=== PATIENT | female | born 1995 | race Caucasian/White ===

== ENCOUNTER 2023-04-20 15:04 | Outpatient (CLI) | payer BC, SELFPAY | END 2023-04-20 15:05 | disposition home or self-care (01) | PROVIDERS: PCP Family Medicine; Visit Provider Physician Assistant | DX: Z01.419 Encounter for gynecological examination (general) (routine) without abnormal findings (principal); E03.9 Hypothyroidism, unspecified; N92.6 Irregular menstruation, unspecified; E66.01 Morbid (severe) obesity due to excess calories; Z13.1 Encounter for screening for diabetes mellitus; Z13.6 Encounter for screening for cardiovascular disorders | CPT/HCPCS: 80061; 84443 ==

== ENCOUNTER 2023-05-03 10:09 | Outpatient (CLI) | payer BC, SELFPAY ==
--- NOTE | 2023-05-03 10:15 | CRLHL7_ITS ---
For Patients: As a result of the Century Cures Act, medical imaging exams and procedure reports are released immediately into your electronic medical record. You may view this report before your referring provider. If you have questions, please contact your health care provider. INDICATION: Irregular menstruation COMPARISON: none TECHNIQUE: 2D lund scale and color Doppler images were acquired of the pelvis using a transabdominal and transvaginal approach. FINDINGS: Sonographic images demonstrate a normal size and smooth outer contour of the uterus. Uterus measures 8.3 cm in length by 3.4 cm in AP diameter by 4.2 cm in transverse dimension. The myometrium has a normal uniform echotexture. The endometrial lining appears thickened and measures 14 mm in composite thickness. The right ovary measures 2.6 x 1.9 x 1.9 cm in size and the left ovary measures 4.5 x 3.0 x 3.1 cm. The ovaries demonstrate normal arterial and venous blood flow on color Doppler analysis. There are no suspicious fluid collections within the cul-de-sac. IMPRESSION: Endometrial thickness 1.4 cm. A trace amount of fluid in the lower uterine segment may be present. No uterine fibroid. Dictated by Marlon Lala MD @ 05/03/2023 11:12:41 AM (Electronically Signed)
== END 2023-05-03 10:10 | disposition home or self-care (01) ==
LOC: US 10:09
PROVIDERS: PCP Family Medicine; Visit Provider Physician Assistant
DX: N92.6 Irregular menstruation, unspecified (principal); R93.89 Abnormal findings on diagnostic imaging of other specified body structures
CPT/HCPCS: 76830; 76856

== ENCOUNTER 2023-05-11 09:48 | Outpatient (CLI) | payer BC, SELFPAY | END 2023-05-11 09:49 | disposition home or self-care (01) | PROVIDERS: PCP Family Medicine; Referring Provider Family Medicine; Visit Provider Physician Assistant | DX: N93.8 Other specified abnormal uterine and vaginal bleeding (principal) | CPT/HCPCS: 82670; 83001 ==

== ENCOUNTER 2023-07-02 09:03 | Outpatient (CLI) | payer BC, SELFPAY ==
--- OUTSIDE RECORDS SUMMARY | 2023-07-12 22:01 | XMS_ITS | Continuity of Care Document ---
Author Name Unknown Organization [facility] Address [address] [place] [address] Phone Care Team Providers Care Community Health Agent Name Role Phone Douglas Mckeon MD Unavailab le Allergies, Adverse Reactions, Alerts Substance Reaction Status Criticality etanercept rash Active No Information Medications Medication Instructions Dosage Effective Dates (start - stop) Status Comments TIROSINT (unknown strength) Not Available - Active Procedures Procedure Date Office/Outpatient Visit,Est, Mod 2016 X-Ray Exam Lwr Spine, Min 4 Views Office/Outpatient Visit,Est, Mod 2016 Office/Outpatient Visit,New, Mod 2016 Advance Directives Directive Yes / No Effective Date File Name No Information Encounters Encounter Description Practice Location Reason(s) For Visit Diagnoses Date Provider Providers Copied on Encounter [facility], [address], [place], [id number], [place] tel:[phone] [facility] No Information Linda ontiveros [facility] [place], [address], [address], [place], [id number], [place]. tel:[phone] Office/Outpat ient Visit,Est, Mod [facility], [address], [place], [id number], [place] tel:[phone] [facility] - [facility] [place] Low back pain Linda ontiveros [facility], [address], [address], [place], [place], [id number], . tel:[phone] Referring Provider: Reza Mark [facility] [address], [address], [address]. [phone] Office/Outpat ient Visit,Est, Mod [facility], [address], [place], [place], [id number], [place] tel:[phone] [facility] Low back pain Linda rosaFlaquita [facility], [address] [place] [address], [address], [place], [place], [id number], . tel:[phone] Referring Provider: Reza Mark [facility] [address], [address], [address]. tel:[phone] Office/Outpat ient Visit,New, Mod [facility], [address], [place], [place], [id number], [place] tel:[phone] [facility] Low back pain Linda Miner rama [facility], [address] [place] [address], [address], [place], [place], [id number], . tel:[phone] Referring Provider: Reza Mark [facility] [address] [employer] [address], [address], [address]. tel:[phone] Family History Family Member Type Diagnosis Age At Onset No Information Payers Payer name Insurance type Covered green party ID Authoriza tion(s) [employer] [id number] Social History Type Description Quantity Date Captured Comments Sex Female Smoking Status No Information Chief Complaint And Reason For Visit No Information Reason For Referral Reason For Referral No Information History Of Present Illness Encounter Date Complaint History Of Prese nt Illness No Information Functional Status Date Functional Assessmen t No Information Instructions Date Instruction Additional Infor mation Weight Management Education Rela tana to Overweight Weight management: I nstructed to return to General Practitioner timeframe: 1 Month. Related to Overweight Weight Management Education Rela tana to Overweight Weight management: I nstructed to return to General Practitioner timeframe: 1 Month. Related to Overweight Weight Management Education Rela tana to Overweight Weight management: I nstructed to return to General Practitioner timeframe: 1 Month. Related to Overweight Assessments Type Assessment Date No Information Patient Care Teams Name Effective Dates (start - stop) Status Members No Information
== END 2023-07-02 09:04 | disposition home or self-care (01) ==
PROVIDERS: PCP Family Medicine; Referring Provider Obstetrics & Gynecology; Visit Provider Family Medicine
DX: Z01.818 Encounter for other preprocedural examination (principal); E03.9 Hypothyroidism, unspecified; N93.8 Other specified abnormal uterine and vaginal bleeding
CPT/HCPCS: 84144

== ENCOUNTER 2023-07-17 06:44 | Day surgery (SDC) | payer BC, SELFPAY ==
[2023-07-17] VITALS (7 sets, daily range): BP systolic 107–122; BP diastolic 70–86; PULSE 73–85; RESP 16; TEMP 36.6–36.7; O2SAT 96–97; BMI 51.1
--- OUTSIDE RECORDS SUMMARY | 2023-07-17 06:47 | XMS_ITS | Continuity of Care Document ---
Author Name Unknown Organization [facility] Address [address] [place] [address] Phone Care Team Providers Care Trapper Animal Name Role Phone Douglas Mckeon MD Unavailab [...] Copied on Encounter [facility], [address], [place], [id number], [place] tel:[phone] [facility] No Information Linda ontiveros [facility] [place], [address], [address], [place], [id number], [place]. tel:[phone] Office/Outpat ient Visit,Est, Mod [facility], [address], [place], [id number], [place] tel:[phone] [facility] - [facility] [place] Low back pain Linda ontiveros [facility], [address], [address], [place], [place], [id number], . tel:[phone] Referring Provider: Reza Mark [facility] [address], [address], [address]. [phone] Office/Outpat ient Visit,Est, Mod [facility], [address], [place], [place], [id number], [place] tel:[phone] [facility] Low back pain Linda rosaFlaquita [facility], [address] [place] [address], [address], [place], [place], [id number], . tel:[phone] Referring Provider: Reza Mark [facility] [address], [address], [address]. tel:[phone] Office/Outpat ient Visit,New, Mod [facility], [address], [place], [place], [id number], [place] tel:[phone] [facility] Low back pain Linda Miner rama [facility], [address] [place] [address], [address], [place], [place], [id number], . tel:[phone] Referring Provider: Reza Mark [facility] [address] [employer] [address], [address], [address]. tel:[phone] Family History Family Member Type Diagnosis Age At Onset No Information Payers Payer name Insurance type Covered constitution party ID Authoriza tion(s) [employer] [id number] Social History Type Description Quantity Date Captured [...]
[2023-07-17] MEDS: LACTATED RINGERS 1000 ML 1,000 ML 100 ML IV (07:05)
[2023-07-17 07:25] LABS: Ur HCG Qualitative* Negative (Negative)
[2023-07-17] MEDS: SODIUM CHLORIDE 0.9 % (FLUSH) 10 ML SYRINGE IVF (07:47)
[2023-07-17] MEDS: BUPIVACAINE 0.5% 30 ML INJECTION (09:28)
--- NOTE | 2023-07-17 09:54 | P.GYNPRC_ITS ---
Procedure Note Time Seen by Provider: 09:00 Date of procedure: 07/17/23 Pre-op diagnosis: Abnormal uterine bleeding, thick endometrial lining Post-op diagnosis: same Procedure: Hysteroscopy, dilation and curettage Anesthesia: MAC Complications: None Surgeon: Odette Manning MD [employer]: Sarah Rader Estimated blood loss (mL): 5 IV fluids (mL): 700 Urine Output (mL): 150 Pathology: specimen obtained, sent to pathology Condition: stable Disposition: same day Findings: Speculum exam: Cervix with evidence of menses like bleeding, no gross lesions or abnormal discharge. Intrauterine: bilateral cornual opening seen, thick endometrium, no abnormal vascularity or masses. Procedure Description: Patient was taken to the OR were MAC anesthesia was administered without difficulty. She was placed in the dorsal lithotomy position with Cade type stirrups. Patient was then prepared and draped in the normal sterile fashion. A bivalved speculum was inserted in the posterior aspect of the vagina. 0.5% Plain Marcaine was injected at 2 and 11 o'clock a total of about 5mL utilized. A single-tooth tenaculum was used to grasp the anterior lip of the cervix. The cervical os was sequentially dilated to accommodate the 5 mm TrueClear hysteroscope using Hegar dilators. A 5 mm 30 degree TrueClear hysteroscope was introduced under direct visualization, and the uterus was distended with normal saline. Findings as above. Soft tissue incisor blade from TrueClear hysteroscope system was introduced under direct visualization and endometrial curettings performed. Tenaculum was removed from the cervix and good hemostasis was noted at puncture sites. Patient tolerated the procedure well. Instrument and sponge counts were correct x2. The patient was awakened from MAC anesthesia and taken to the recovery room in a stable condition. The patient will go home after recovering from anesthesia and meeting all the criteria for discharge. She was given instruction regarding follow-up visit in 2 weeks at [facility] and instructions for pain medication. Fluid deficit: 110mL
--- NOTE | 2023-07-17 09:59 | W.ANESCHARGE ---
Anesthesia Charges Start Date/Time Anesthesia Start Date: 07/17/23 Anesthesia Start Time: 09:17 Stop Date/Time Anesthesia Stop Date: 07/17/23 Anesthesia Stop Time: 09:57
--- NOTE | 2023-07-17 10:16 | W.ANESCHARGE ---
Anesthesia Charges Start Date/Time Anesthesia Start Date: 07/17/23 Anesthesia Start Time: 09:17 Stop Date/Time Anesthesia Stop Date: 07/17/23 Anesthesia Stop Time: 09:57
== END 2023-07-17 11:11 | disposition home or self-care (01) ==
PROVIDERS: PCP Family Medicine; Visit Provider Obstetrics & Gynecology
PROC: 0UDB8ZZ Extraction of Endometrium, Via Natural or Artificial Opening Endoscopic (ICD-10-PCS; CPT 58558; principal; 2023-07-17 08:15)
DX: N93.8 Other specified abnormal uterine and vaginal bleeding (principal); R93.89 Abnormal findings on diagnostic imaging of other specified body structures
CPT/HCPCS: 58558; 00952; 81025; 88305; J0665; J1885; J2250; J2405; J2704; J3010; J3490; J7120

== ENCOUNTER 2023-09-04 08:55 | Outpatient (CLI) | payer BC, SELFPAY ==
--- OUTSIDE RECORDS SUMMARY | 2023-09-04 08:57 | XMS_ITS | Continuity of Care Document ---
Author Name Unknown Organization [facility] Address [address] [place] [address] Phone Care Team Providers Care Ice Rink Attendant Name Role Phone Douglas Mckeon MD Unavailab [...] [facility], [address], [place], [id number], [place] tel:[phone] [facility] No Information Linda ontiveros [facility] [place], [address], [address], [place], [id number], [place]. tel:[phone] Office/Outpat ient Visit,Est, Mod [facility], [address], [place], [id number], [place] tel:[phone] [facility] [place] Low back pain Linda ontiveros [facility], [address], [address], [place], [place], [id number], . tel:[phone] Referring Provider: Reza Mark [facility] [employer] [address], [address], [address]. [phone] Office/Outpat ient Visit,Est, Mod [facility], [address], [place], [place], [id number], [place] tel:[phone] [facility] Low back pain Linda rosaFlaquita [facility], [address] [place] [address], [address], [place], [place], [id number], . tel:[phone] Referring Provider: Reza Mark [facility] [employer] [address], [address], [address]. tel:[phone] Office/Outpat ient Visit,New, Mod [facility], [address], [place], [place], [id number], [place] tel:[phone] [facility] Low back pain Linda Miner rama [facility], [address] [place] [address], [address], [place], [place], [id number], . tel:[phone] Referring Provider: Reza Mark [facility] [address] [employer] [address], [address], [address]. tel:[phone] Family History Family Member Type Diagnosis Age At Onset No Information Payers Payer name Insurance type Covered libertarian ID Authoriza tion(s) [employer] [id number] Social History Type Description Quantity Date Captured [...]
== END 2023-09-04 08:56 | disposition home or self-care (01) ==
LOC: NFLDREF 08:56
PROVIDERS: PCP Family Medicine; Visit Provider Family Medicine
DX: D64.9 Anemia, unspecified (principal); N93.8 Other specified abnormal uterine and vaginal bleeding
CPT/HCPCS: 82728

== ENCOUNTER 2024-05-02 09:03 | Outpatient (CLI) | payer BC, SELFPAY ==
--- OUTSIDE RECORDS SUMMARY | 2024-05-02 09:07 | XMS_ITS ---
Author Organization [facility] Address [address] [place] [address] Care Team Providers Care Weigh Box Tender Name Role Phone Unavailable Unavailable Unavailable Surgery Details Not on file Complications Check Surgery Details section. Procedure Estimated Blood Loss Check Surgery Details section. Procedure Findings Check Surgery Details section. Procedure Specimens Taken Check Surgery Details section.
--- OUTSIDE RECORDS SUMMARY | 2024-05-02 09:07 | XMS_ITS | Clinical Summary ---
Author Organization [facility] Address [address] [place] [address] Care Team Providers Care Rn Radiation Oncology Name Role Phone Elsewhere, Pcp Primary Care Provider Unavailabl e Source Comments Patient records contain information from all sites at [facility]. For routine questions regarding patient records, call [phone] during business hours, M-F 8:00 AM - 5:00 PM Central Time. Record requests for emergency care only can be directed to [phone] at any time.[facility] Allergies Active Allergy Reactions Criticality Noted Date Comments Etanercept Rash 11/06/2016 House Dust Other (see comments) 07/26/2007 Medications Medication Sig Dispensed Refills Start Date End Date Status vits96/iron fum/folic ( vitamin-ferrous fumarate-FA) 27 mg iron- 800 mcg per tablet Take 2 tablets by mouth daily. Active metFORMIN XR (GLUCOPHAGE-XR) 500 mg 24 hr tablet Take 1,000 mg by mouth daily with breakfast. 09/04/2023 Active levothyroxine (SYNTHROID, LEVOTHROID) 100 mcg tablet TAKE 1 TABLET(100 MCG) BY MOUTH DAILY 90 tablet 2 09/19/2023 Active celecoxib (CeleBREX) 200 mg capsuleIndications:P ain Foot Left,Sprain Foot Initial Left TAKE 1 CAPSULE(200 MG) BY MOUTH TWICE DAILY 180 capsule 3 11/02/2023 Active ibuprofen (MOTRIN) 600 mg tabletIndications:Sp rain Ankle Initial Right Take 1 tablet (600 mg total) by mouth every 6 (six) hours as needed for pain (pain). 120 tablet 04/01/2024 Active levothyroxine (SYNTHROID, LEVOTHROID) 137 mcg tablet Take 137 mcg by mouth every morning before breakfast. 03/19/2024 Active Active Problems Problem Noted Date Diagnosed Date ZZ Body Mass Index 50.0 To 59.9 Adult 06/27/2022 Obesity Unspecified 04/14/2022 Infertility Female 04/14/2022 Menstrual Irregularity 04/14/2022 Hypothyroidism 04/14/2022 Allergy Unspecified Initial 04/14/2022 Asthma 04/14/2022 Atypical Squamous Cells Undetermined Significanc e Cervix 12/29/2019 Overview: 12/29/2019 ASCUS/HPV+. 02/21/2021 NIL Plan: Pap due 02/2022 Spondylitis Ankylosing 12/06/2016 Spondylosis Without Myelopat hy Or Radiculopathy Site Unspecified 09/19/2016 Pain Low Back Chronic 08/23/2016 Overview: Lumbar Spine MRI January 2013. Aug 2016: Rheumatology consult Dr. Mark, MRI of sacroiliac joints ordered. Hypothyroidism 06/21/2007 Resolved Problems Problem Noted Date Diagnosed Date Resolved Date Bleeding Vaginal Trimester First 05/04/2022 06/27/2022 Encounters Date Type Department Care Team Description 04/15/2024 10:30 AM CDT Office Visit Department of Occupational Medicine [address] [phone] Monique Linton P.A.-C., P.A. Sprain Ankle Initial Right 04/03/2024 2:15 PM CDT Comprehensive Visit Department of Occupational Medicine in [address] [phone] Monique Linton P.A.-C., P.A. Sprain Ankle Initial Right 04/02/2024 Clinical Communication Department of Family Medicine, [facility], [address] [phone] Saida Osullivan, MARY, C.N.P., D.N.P. 04/01/2024 4:30 PM CDT Office Visit Department of Family Medicine, [facility], in [place], [place] [address] [place] [address] Saida Osullivan, MARY, C.N.P., D.N.P. Sprain Ankle Initial Right (Primary Dx) 04/01/2024 4:07 PM CDT - 04/01/2024 11:59 PM CDT Hospital Encounter Department of Radiology in [place], [place] [address] [place] [address] Saida Osullivan APRN, C.N.P., D.N.P. Pain Ankle Right Discharge Disposition: Home or Self Care from Last 3 Months Immunizations Name Administration Dates Next Due 4vHPV (discontinued) 11/26/2013,09/18/2012 9vHPV 03/21/2016 DTaP (Infanrix, Tripedia) 06/07/2001,,1997,1997,1997 HepB, Unspecified 1997,1997,06/25/19 97 Hib (HbOC) (discontinued) 12/11/1998,,1997,1996 IPV 06/07/2001, 9,1997,1996 Influenza, Seasonal, Injectable 08/15/1999 Influenza, Unspecified 02/09/2022(Deferred: Monik ent decision) MCV4 (Menveo) 11/26/2013,09/18/2012 MMR 06/07/2001,09/11/1998 PPSV23 08/15/1999 Rho (D) Immune Globulin (IM only) 05/05/2022 SARS-COV-2 (COVID-19) - PFIZ ER (Discontinued)(12 years or older) 02/09/2022(Deferred: Patient decision) Tdap 12/19/2019,06/09/2009 ROXANA 06/09/2009,09/11/1998 Family History Medical History Relation Name Comments Cancer Maternal Grandmother Diabetes Maternal Grandmother Throat cancer Maternal Grandmother Breast cancer Paternal Grandmother Relation Name Status Comments Maternal Grandmother Paternal Grandmother Social History Tobacco Use Types Packs/Day Years Used Date Smoking Tobacco: Never Smokeless Tobacco: Never Tobacco Cessation:Counseling Given: Not Answered Alcohol Use Standard Drinks/Week Comments Not Currently 2 (1 standard drink = 0.6 oz pur e alcohol) 1 or twice per month. Humiliation, Afraid, Rape, and Kick questionnair e Answer Date Recorded Within the last year, have y ou been afraid of your partner or ex-partner? No 09/08/2022 Within the last year, have y ou been humiliated or emotionally abused in other ways by your partner or ex-partner? No Within the last year, have y ou been kicked, hit, slapped, or otherwise physically hurt by your partner or ex-partner? No 09/08/2022 Within the last year, have y ou been raped or forced to have any kind of sexual activity by your partner or ex-partner? No 09/08/2022 Social Connection and Isolat ion Panel [NHANES] Answer Date Recorded In a typical week, how many times do you talk on the phone with family, friends, or neighbors? More than three times a week 09/08/2022 How often do you get togethe r with friends or relatives? Once a week 09/08/2022 How often do you attend chur or voodoo services? Never 09/08/2022 Do you belong to any clubs o r organizations such as cheondoism groups, unions, fraternal or athletic groups, or school groups? No 09/08/2022 How often do you attend meet ings of the clubs or organizations you belong to? Never 09/08/2022 Are you , , di vorced, , never , or living with a partner? Living with partner 09/08/2022 AUDIT-C Answer Date Recorded Q1: How often do you have a drink containing alc ohol? Monthly or less 09/08/2022 Q2: How many drinks containi ng alcohol do you have on a typical day when you are drinking? 1 or 2 09/08/2022 Q3: How often do you have si x or more drinks on one occasion? Never 09/08/2022 Overall Financial Resource Strain (CARDIA) Answe r Date Recorded How hard is it for you to pa y for the very basics like food, housing, medical care, and heating? Not hard at all 09/08/2022 PHQ-2 Answer Date Recorded PHQ-2 Score 0 06/29/2023 [facility] - Occupational Stress Questionnaire Answer Date Recorded Do you feel stress - tense, restless, nervous, or anxious, or unable to sleep at night because your mind is troubled all the time - these days? Not at all 09/08/2022 Exercise Vital Sign Answer Date Recorde d On average, how many days pe r week do you engage in moderate to strenuous exercise (like a brisk walk)? 7 days 09/08/2022 On average, how many minutes do you engage in exercise at this level? 30 min 09/08/2022 Hunger Vital Sign Answer Date Recorded Within the past 12 months, y ou worried that your food would run out before you got the money to buy more. Never true 09/08/20 Within the past 12 months, t he food you bought just didn't last and you didn't have money to get more. Never true 09/08/2022 PRAPARE - Transportation Answer Date Re corded In the past 12 months, has l ack of transportation kept you from medical appointments or from getting medications? No 08/22 In the past 12 months, has l ack of transportation kept you from meetings, work, or from getting things needed for daily living? No 09/08/2022 Housing Stability Vital Sign Answer Daniel e Recorded In the last 12 months, was t here a time when you were not able to pay the mortgage or rent on time? No 09/08/2022 In the last 12 months, how many places have you lived? 1 09/08/2022 In the last 12 months, was t here a time when you did not have a steady place to sleep or slept in a half-way (including now)? No 09/08/2022 Nutrition Answer Date Recorded On average, how many serving s of fruits and vegetables do you eat per day (serving size is equal to 1 cup or approximately the size of a tennis ball)? 2-3 09/08/2022 Dental Answer Date Recorded Dental: Regular Dentist Yes 02/06/20 Employment Answer Date Recorded Employment status Employed and actively working without restrictions 09/08/2022 Education Answer Date Recorded What is the highest level of school you have completed or the highest degree you have received? Bachelor's degree (e.g., BA, AB, BS) 02/05/2022 Sex and Gender Information Value Date Recorded Sex Assigned at Female 04/11/2022 8:07 PM CDT Gender Identity Female 04/11/2022 8:07 PM CDT Sexual Orientation Straight 04/11/2022 8: 07 PM CDT Last Filed Vital Signs Vital Sign Reading Time Taken Comments Blood Pressure 123/80 04/15/2024 10:47 AM CDT Pulse 80 04/15/2024 10:47 AM CDT Temperature 36.2 ??C (97.1 ??F) 04/01/2024 3:55 PM CD T Respiratory Rate 18 02/09/2022 9:10 AM CDT Oxygen Saturation - - Inhaled Oxygen Concentration - - Weight 130 kg (287 lb 0.6 oz) 09/08/2022 8:39 AM MEASUREMENT PSYCHOLOGIST Height 161.9 cm (5' 3.74) 09/08/2022 10:[address] Body Mass Index 49.68 09/08/2022 8:39 AM MEASUREMENT PSYCHOLOGIST Plan of Treatment Upcoming Encounters Date Type Department Care Team (Late st Contact Info) Description 05/27/2024 8:15 AM CDT Office Visit Department of Occupational Medicine in [place], [place] [address] [address] Monique Linton P.A.-Jenny., P.A. [address] [place] [phone] Health Maintenance Due Date Last Done Comments HIV Screening 1997 Hepatitis C Screening 1997 Pneumococcal vaccine (0-64 y ears) (2 of 3 - PCV) 08/15/2000 08/15/1999 Asthma Action Plan 04/14/2022 COVID-19 Vaccine (3 - 2022-2 4 season) 2023 03/31/2021, 03/10/2021 Thyroid Stimulating Hormone (TSH) test for thyroid function 09/08/2023 09/08/2022, 04/14/2022, 02/16/2022, Additional history exists Depression Screening (Annual PHQ-2) 10/22/2023 Asthma Control Test Questionnaire 06/29/2024 023 Asthma Management/Exacerbati on Questionnaire (AMQ/AEQ) 06/29/2024 06/29/2023 Influenza Vaccine (#1) 2024 02/09/2022, 1998 Cervical Cancer Screening 02/09/2025 02/09/2022, DTaP,Tdap,and Td Vaccines (7 - Td or Tdap) 12/19/2029 12/19/2019, 06/09/2009, 06/07/2001, Additional history exists Hepatitis B Vaccines Completed 1997, 1997, 1997 HPV Vaccines Completed 03/21/2016, 02/2014, 11/26/2013, Additional history exists Chlamydia and Gonorrhea Screening Discontinued 022 Procedures Procedure Name Priority Date/Time Associated Diagnosis Comments DX ANKLE RIGHT 3+ VIEWS RAD - Semiurgent (Fast; most ED patients; some inpatients) 04/01/2024 4:22 PM CDT Pain Ankle Right THYROID-STIMULATI NG HORMONE-SENSITIVE (S-TSH) Routine 09/08/2022 10:07 AM MEASUREMENT PSYCHOLOGIST Body Mass Index 50.0 To 59.9 Adult (HCC) CHLAMYDIA/GONORRH OEAE AMPLIFIED RNA Routine 04/14/2022 4:17 PM CDT Screening For Venereal Disease HPV WITH GENOTYPING, PCR, THINPREP Routine 02/09/2022 9:52 AM CDT from Last 3 Months or Most Recently Relevant to Health Maintenance Results * DX Ankle Right 3+ Views (04/01/2024 4:22 PM CDT) Anatomical Region Laterality Modality Lower Extremity, Ankle, Musc uloskeletal RST LOS, Musculoskeletal ARZ LOS, Muskuloskeletal FLA LOS Right Digit al Radiography Impressions 04/01/2024 4:28 PM CDT No ankle fracture. Ankle mortise is symmetrical. Small Achilles and plantar calcaneal spurs. Narrative 04/01/2024 4:28 PM CDT EXAM: DX ANKLE RIGHT 3+ VIEWS Procedure Note Star Jacques M.D. - 04/01/2024 EXAM: DX ANKLE RIGHT 3+ VIEWS IMPRESSION: No ankle fracture. Ankle mortise is symmetrical. Small Achilles andplantar calcaneal spurs. Saida Osullivan APRN, C.N.P., D.N.P. IMG DI AGNOSTIC IMAGING PROCEDURES * (ABNORMAL) S-TSH (Thyroid-Stimulating Hormone - Sensitive) (09/08/2022 10:07 AM MEASUREMENT PSYCHOLOGIST) Pathologist [facility] TSH, Sensitive 4.4(H) 0.3 - 4.2 mIU/L 09/08/2022 11:18 AM MEASUREMENT PSYCHOLOGIST DTL Blood (Blood, Venous) 09/08/2022 10:07 AM MEASUREMENT PSYCHOLOGIST 09/08/2022 10:51 AM MEASUREMENT PSYCHOLOGIST Markus Villar M.D. LAB BLOOD ADD- ON [facility] [address] [place] [address], [facility] [address] [place] [address] * Chlamydia / Gonorrhoeae Amplified RNA (04/14/2022 4:17 PM CDT) Source Swab, Urine, First Voided 04/15/2022 12:04 AM CDT MKTO Chlamydia trachomatis amplified RNA Negative Negative 04/15/2022 12:04 AM CDT MKTO Source Swab, Urine, First Voided 04/15/2022 12:04 AM CDT MKTO Neisseria gonorrhoeae amplified RNA Negative Negative 04/15/2022 12:04 AM CDT MKTO Varies (Urine, First Voided) 04/14/2022 4:17 PM CDT 04/14/2022 7:21 PM CDT Carla Arzate M.D. LAB MICROBIOLOGY - G ENERAL ORDERABLES [facility] [address] [place] [address], [place] [address] * HPV with Genotyping, PCR, ThinPrep (02/09/2022 9:52 AM CDT) HPV with Genotyping, ThinPrep, PCR Negative Negative 02/10/2022 2:30 PM CDT [facility] Comment: Negative for high risk HPV by nucleic acid amplification. ??The following high risk HPV types were not detected: 16, 18, 31, 33, 35, 39, 45, 51, 52, 56, 58, 59, 66, and 68 Varies 02/09/2022 9:52 AM CDT 02/10/2022 7:11 AM CDT Gale Kenyon APRN, C.N.P. LAB MICROBI OLOGY - GENERAL ORDERABLES [facility] [address] [place] [address], [place] [address] from Last 3 Months or Most Recently Relevant to Health Maintenance Care Teams Rn Radiation Oncology Relationship Specialty Start Date End Date Elsewhere, Pcp PCP - General Internal Medicine 02/09/22
--- OUTSIDE RECORDS SUMMARY | 2024-05-02 09:07 | XMS_ITS | Referral Summary ---
Author Organization [facility] Address [address] [place] [address] Care Team Providers Care Philatelic Consultant Name Role Phone Elsewhere, Pcp Primary Care Provider Unavailabl e Source Comments Patient records contain information from all sites at [facility]. For routine questions regarding patient records, call [phone] during business hours, M-F 8:00 AM - 5:00 PM Central Time. Record requests for emergency care only can be directed to [phone] at any time.[facility] Encounters Date Type Department Care Team Description 04/15/2024 10:30 AM CDT Office Visit Department of Occupational Medicine in [place], [place] [address] [place] [phone] Monique Linton P.A.-C., P.A. Sprain Ankle Initial Right 04/03/2024 2:15 PM CDT Comprehensive Visit Department of Occupational Medicine in [place], [place] [address] [place] [phone] Monique Linton P.A.-C., P.A. Sprain Ankle Initial Right 04/02/2024 Clinical Communication Department of Family Medicine, [facility], in [place], [place] [address] [place] [phone] Saida Osullivan APRN, C.N.P., D.N.P. 04/01/2024 4:07 PM CDT - 04/01/2024 11:59 PM CDT Hospital Encounter Department of Radiology in [place], [place] [address] [place] [phone] Saida Osullivan APRN C.N.P., D.N.P. Pain Ankle Right Discharge Disposition: Home or Self Care 04/01/2024 4:30 PM CDT Office Visit Department of Family Medicine, [facility], in [place], [place] [address] [place] [address] Saida Osullivan APRN, C.N.P., D.N.P. Sprain Ankle Initial Right (Primary Dx) from Last 3 Months Allergies Active Allergy Reactions Criticality Noted Date [...] Date Bleeding Vaginal Trimester First 05/04/2022 06/27/2022 Immunizations Name Administration Dates Next Due 4vHPV [...] 02/09/2022(Deferred: Patient decision) Tdap 12/19/2019,06/09/2009 ROXANA 06/09/2009,09/11/1998 Social History Tobacco Use Types Packs/Day Years [...] How often do you attend chur or amish services? Never 09/08/2022 Do you belong to any clubs o r organizations such as latter-day groups, unions, fraternal or athletic groups, or [...] Answer Date Recorded PHQ-2 Score 0 06/29/2023 Citizen Of [place] [facility] - Occupational Stress Questionnaire Answer Date Recorded [...] place to sleep or slept in a group home (including now)? No 09/08/2022 Nutrition Answer Date [...] (287 lb 0.6 oz) 09/08/2022 8:39 AM NNPS Height 161.9 cm (5' 3.74) 09/08/2022 10:[address] Body Mass Index 49.68 09/08/2022 8:39 AM NNPS Plan of Treatment Upcoming Encounters Date Type Department Care Team (Late st Contact Info) Description 05/27/2024 8:15 AM CDT Office Visit Department of Occupational Medicine in [place], [place] [address] [phone] Monique Linton P.A.-C., P.A. [address] [phone] Procedures Procedure Name Priority Date/Time Associated Diagnosis Comments DX ANKLE RIGHT 3+ VIEWS RAD - Semiurgent (Fast; most ED patients; some inpatients) 04/01/2024 4:22 PM CDT Pain Ankle Right THYROID-STIMULATI NG HORMONE-SENSITIVE (S-TSH) Routine 09/08/2022 10:07 AM NNPS Body Mass Index 50.0 To 59.9 Adult [...] (Thyroid-Stimulating Hormone - Sensitive) (09/08/2022 10:07 AM NNPS) Pathologist [facility] TSH, Sensitive 4.4(H) 0.3 - 4.2 mIU/L 09/08/2022 11:18 AM NNPS DTL Blood (Blood, Venous) 09/08/2022 10:07 AM NNPS 09/08/2022 10:51 AM NNPS Markus Villar M.D. LAB BLOOD ADD- ON [facility] [address] [place] [address], [place] [facility] [address] [place] [address] * Chlamydia / Gonorrhoeae Amplified RNA (04/14/2022 [...] M.D. LAB MICROBIOLOGY - G ENERAL ORDERABLES Performing Organization Address City/[facility]/ZIP Co de Phone Number [facility] [address] [place] [address] * HPV with Genotyping, PCR, ThinPrep (02/09/2022 9:52 AM CDT) HPV with Genotyping, ThinPrep, PCR Negative Negative 02/10/2022 2:30 PM CDT MKTO Comment: Negative for high risk HPV by nucleic acid amplification. ??The following high risk HPV types were not detected: 16, 18, 31, 33, 35, 39, 45, 51, 52, 56, 58, 59, 66, and 68 Varies 02/09/2022 9:52 AM CDT 02/10/2022 7:11 AM CDT Odette Whyte APRNNEnoch LAB MICROBI OLOGY - GENERAL ORDERABLES [facility] [address] [place] [address] from Last 3 Months or Most Recently Relevant to Health Maintenance Care Teams Philatelic Consultant Relationship Specialty Start Date End Date Elsewhere, Pcp PCP - General Internal Medicine 02/09/22
--- OUTSIDE RECORDS SUMMARY | 2024-05-02 09:07 | XMS_ITS | Continuity of Care Document ---
Author Organization [facility] Address [address] [place] [address] Phone Care Team Providers Care Crew Member Name Role Phone Douglas Mckeon MD Unavailab [...] [facility], [address], [place], [id number], [place] tel:[phone] [facility] No Information Linda ontiveros [facility], [address] [place] [address], [address], [place], [id number], [place]. tel:[phone] Office/Outpat ient Visit,Est, Mod [facility], [address], [place], [id number], [place] tel:[phone] [facility] Specialty [place] Low back pain Linda ontiveros [facility], [address], [address], [place], [place], [id number], . tel:[phone] Referring Provider: Reza Mark [facility] [place] [facility] [address], [address], [address]. [phone] Office/Outpat ient Visit,Est, Mod [facility], [address], [place], [place], [id number], tel:[phone] [facility] Low back pain Linda rosaFlaquita [facility], [address] [place] [address], [address], [place], [place], [id number], . tel:[phone] Referring Provider: Reza Mark [facility] [place] [facility] [address], [address], [address]. tel:[phone] Office/Outpat ient Visit,New, Mod [facility], [address], [place], [place], [id number], [place] tel:[phone] [facility] Low back pain Linda rosaFlaquita [facility], [address] [place] [address], [address], [place], [place], [id number], . tel:[phone] Referring Provider: Reza Mark [facility] [place] [facility] [address], [address], [address]. tel:[phone] Family History Family Member Type Diagnosis Age At Onset No Information Payers Payer name Insurance type Covered alliance party ID Authoriza tion(s) [employer] [id number] Social History Type Description Quantity Date Captured [...]
--- OUTSIDE RECORDS SUMMARY | 2024-05-02 09:07 | XMS_ITS | Encounter Summary ---
Author Organization [facility] Address [address] [place] [address] Care Team Providers Care Predictive Maintenance Technician Name Role Phone Elsewhere, Pcp Primary Care Provider Unavailabl e Reason for Referral * Outpatient (Routine) - Authorized Specialty Diagnoses / Procedures Referred By Contac t Referred To Contact Preventive Medicine Diagnoses Sprain Ankle Initial Right Monique Linton P.A.-C., P.A. [address] [phone] [facility] Referral ID Status Reason Start Date Expiration Date V isits Requested Visits Authorized [id number] Authorized 04/15/2024 10/15/2025 1 1 * Physical Therapy (Routine) - Authorized Specialty Diagnoses / Procedures Referred By Contac t Referred To Contact Diagnoses Sprain Ankle Initial Right Monique Linton P.A.-C., P.A. [address] [place] [address] [facility] [address] [address] Phone: [phone] Referral ID Status Reason Start Date Expiration Date Visits Requested Visits Authorized [id number] Authorized Patient Preference 04/15/2024 10/15/2025 1 1 Reason for Visit * Reason Comments Work Related Injury [facility] 04/01/24 [facility] * Outpatient (Routine) - Closed Specialty Diagnoses / Procedures Referred By Elena hampton Referred To Contact Preventive Medicine Diagnoses Sprain Ankle Initial Right Monique Linton P.A.-C., P.A. [address] [phone] [facility] Region Referral ID Status Reason Start Date Expiration Date Visits Re quested Visits Authorized [id number] Closed 04/03/2024 10/03/2025 1 1 Encounter Details Date Type Department Care Team (Latest Contact Info) Description 04/15/2024 10:30 AM CDT Office Visit Department of Occupational Medicine in [place], [place] [address] [phone] Monique Linton P.A.-C., P.A. [address] [place] [phone] Sprain Ankle Initial Right Social History Tobacco Use Types Packs/Day Years [...] 09/08/2022 How often do you attend chur ch or religion services? Never 09/08/2022 Do you belong to any clubs o r organizations such as sabianist groups, unions, fraternal or athletic groups, or [...] Answer Date Recorded PHQ-2 Score 0 06/29/2023 [facility] Answer Date [...] money to buy more. Never true 09/08/20 22 Within the past 12 months, t he [...] Orientation Straight 04/11/2022 8: 07 PM CDT documented as of this encounter Last Filed Vital Signs Vital Sign Reading Time Taken Comments Blood Pressure 123/80 04/15/2024 10:47 AM CDT Pulse 80 04/15/2024 10:47 AM CDT Temperature - - Respiratory Rate - - Oxygen Saturation - - Inhaled Oxygen Concentration - - Weight - - Height - - Body Mass Index - - documented in this encounter Progress Notes * Monique Linton P.A.-Jenny., P.A. - 04/15/2024 10:30 AM CDT DATE OF VISIT: 04/15/24 EMPLOYER: [employer] DATE OF INJURY/ILLNESS/EXPOSURE: 04/01/24 POSITION: [employer] Krystina Melo is a 28 y.o. female who presents today for recheck of a right ankle injury that occurred on 04/01/24 at work. To review, Krystina was walking on the sidewalk and tripped, likely due to the uneven ground, causing her to twist her right ankle. She was seen in the same day clinic on the [facility], where right ankle x-rays were negative for any acute osseous injury. She was diagnosed with a sprain and given work restrictions and instructions for conservative cares. At her initial visit in our clinic 2 days later, she was instructed to continue with conservative cares and light duty restrictions. Krystina presents for follow-up today, reporting Pain Score: 5/10; Pain Loc: Ankle (right). She reports some improvement in her pain compared to the last visit, but she does still have pain with walking/weightbearing. She states that she struggles to stay on it for longer periods of time. Her pain remains mainly located over the lateral aspect of the ankle. She has continued wearing her brace most of the time, and it gives her good support. 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 Previous injury or condition: Denies any prior injuries, surgeries, or conditions of the right ankle. She is known to our department for a prior work- related left ankle sprain which occurred in June 2023. Social and Occupational History: She works for [employer], duration of employment: 3 years. She works full-time 5 days per week for 8 hours per shift. Past Medical History: Diagnosis Date Abnormal Pap Smear Cervix Bleeding Vaginal Trimester First (HCC) 05/04/2022 Gallbladder Disorder Hypothyroidism Current Outpatient Medications on File Prior to Visit Medication Sig Dispense Refill celecoxib (CeleBREX) 200 mg capsule TAKE 1 CAPSULE(200 MG) BY MOUTH TWICE DAILY 180 capsule 3 ibuprofen (MOTRIN) 600 mg tablet Take 1 tablet (600 mg total) by mouth every 6 (six) hours as needed for pain (pain). 120 tablet 0 levothyroxine (SYNTHROID, LEVOTHROID) 100 mcg tablet TAKE 1 TABLET(100 MCG) BY MOUTH DAILY 90 tablet 2 levothyroxine (SYNTHROID, LEVOTHROID) 137 mcg tablet Take 137 mcg by mouth every morning before breakfast. metFORMIN XR (GLUCOPHAGE-XR) 500 mg 24 hr tablet Take 1,000 mg by mouth daily with breakfast. vits96/iron fum/folic ( vitamin-ferrous fumarate-FA) 27 mg iron- 800 mcg per tablet Take 2 tablets by mouth daily. No current facility-administered medications on file prior to visit. ROS: Musculoskeletal: - Negative for back pain, joint swelling and muscle pain/stiffness. - Positive for right ankle pain The following systems were negative: Constitutional, Skin, Respiratory, Cardiovascular, Hematologic, Neurological BP 123/80 (BP Location: Right arm, Patient Position: Sitting, Cuff Size: Regular) Pulse 80 PHYSICAL EXAM: General: Alert, relaxed female, under no acute distress. Skin: Warm, moist. No lesions or ecchymosis. HEENT: Normocephalic, atraumatic. Musculoskeletal: Ankle Exam: right. Gait: mildly antalgic. Inspection: No gross abnormalities on inspection. Palpation: Mild to moderate tenderness to palpation over the lateral aspect of the ankle. Milder tenderness over the mid dorsum of the foot. Range of Motion: Plantar Flexion within normal limits. Dorsiflexion within normal limits. Inversionwithin normal limits. Eversion slightly limited secondary to pain. Toe flexion and abduction normal. Strength: Resisted Plantar Flexion 5/5. Resisted Dorsiflexion 5/5. Neurovascularly intact distally. Diagnostics: DX ANKLE RIGHT 3+ VIEWS Result date: 04/01/24 IMPRESSION: No ankle fracture. Ankle mortise is symmetrical. Small Achilles and plantar calcaneal spurs. ASSESSMENT / PLAN 1. Sprain Ankle Initial Right MMI: No PPD: Undetermined Work Related: Yes 28 y/o female presents for recheck of a right ankle twisting injury that occurred at work on 04/01/24. She reports overall improvement in her symptoms compared to the last visit, but she does have some persistent pain with weightbearing. Clinical picture remains consistent with a sprain. At this time, recommended referral to PT for further evaluation and treatment. Referral was placed to [facility] at the patient's preference. Recommended that she continue with bracing, RICE measures, and OTC analgesics PRN. No change in work restrictions for now until she has achieved further healing and recovery with rehab. Further details below. Will plan for return visit in our clinic in approximately 4-6 weeks. May return sooner if concerns arise. Discussed worsening symptoms that will bring the patient back sooner for further evaluation. Medications: OTC NSAIDs and/or Tylenol PRN. Next step if no significant improvement: consider advanced imaging. Work status: modified duty with restrictions as follows : Maximum lifting 20 lbs. Rare bending, kneeling, squatting/crouching, and twisting. No climbing. Must be able to sit and elevate ankle at least 15 minutes per hour of standing/walking . See attached Report of Injury and Illness for full details. The patient indicates understanding of these issues and agrees with the plan. 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 Thank you for letting me be involved in your care. documented in this encounter Plan of Treatment Upcoming Encounters Date Type Department Care Team (Late st Contact Info) Description 05/27/2024 8:15 AM CDT Office Visit Department of Occupational Medicine in [place], [place] [address] [phone] Monique Linton P.A.-C., P.A. [address] [phone] Scheduled Referrals Name Type Priority Associated Diagnoses Order Schedule Preventive Medicine office visit (clinic) Outpatient Referral Routine Sprain Ankle Initial Right Expected: 05/22/2024, Expires: 07/16/2025 documented as of this encounter Visit Diagnoses Diagnosis Sprain Ankle Initial Right documented in this encounter Care Teams Predictive Maintenance Technician Relationship Specialty Start Date End Date Elsewhere, Pcp PCP - General Internal Medicine 02/09/22 documented as of this encounter
--- OUTSIDE RECORDS SUMMARY | 2024-05-02 09:08 | XMS_ITS | Encounter Summary ---
Author Organization [facility] Address [address] [place] [address] Care Team Providers Care Marketing Lead Name Role Phone Elsewhere, Pcp Primary Care Provider Unavailabl e Reason for Referral * Outpatient (Routine) - Closed Specialty Diagnoses / Procedures Referred By Elena hampton Referred To Contact Occupational Medicine Diagnoses Sprain Ankle Initial Right Saida Osullivan APRN, C.N.P., D.N.P. [address] [phone] [facility] Region Referral ID Status Reason Start Date Expiration Date Visits Re quested Visits Authorized [id number] Closed 04/01/2024 10/01/2025 1 1 * Outpatient (Routine) - Closed Specialty Diagnoses / Procedures Referred By Elena hampton Referred To Contact Diagnoses Pain Ankle Right Procedures DX Ankle Right 3+ Views Saida Osullivan APRN, C.N.P., D.N.P. [address] [place] [address] [facility] Region Referral ID Status Reason Start Date Expiration Date Visits Re quested Visits Authorized [id number] Closed 04/01/2024 04/01/2025 1 1 Reason for Visit * Reason Comments Other Walking on the sidew alk, unsure of what caused her to twist her ankle but now has ankle pain and foot pain, happened this afternoon, reports a little swelling, Encounter Details Date Type Department Care Team (Late st Contact Info) Description 04/01/2024 4:30 PM CDT Office Visit Department of Family Medicine, [facility], in [place], [place] [address] [place] [phone] Saida Osullivan, MARY, C.N.P., D.N.P. [address], [place] [phone] Sprain Ankle Initial Right (Primary Dx) Social History Tobacco Use Types Packs/Day Years [...] How often do you attend chur or gnosticist services? Never 09/08/2022 Do you belong to any clubs o r organizations such as samaritan groups, unions, fraternal or athletic groups, or [...] Answer Date Recorded PHQ-2 Score 0 06/29/2023 [facility] - Occupational Stress Questionnaire Answer Date Recorded [...] place to sleep or slept in a [place] health care facility (including now)? No 09/08/2022 Nutrition Answer Date [...] Sign Reading Time Taken Comments Blood Pressure 121/82 04/01/2024 3:55 PM CDT Pulse 90 04/01/2024 3:55 PM CDT Temperature 36.2 ??C (97.1 ??F) 04/01/2024 3:55 PM CD T Respiratory Rate - - Oxygen Saturation - - Inhaled Oxygen Concentration - - Weight - - Height - - Body Mass Index - - documented in this encounter Progress Notes * Saida Osullivan, MARY, C.N.P., D.N.P. - 04/01/2024 4:30 PM CDT SUBJECTIVE CHIEF COMPLAINT / REASON FOR VISIT Krystina Melo is a 28 y.o. female who presents for evaluation of Other (Walking on the sidewalk, unsure of what caused her to twist her ankle but now has ankle pain and foot pain, happened this afternoon, reports a little swelling, ). HISTORY OF PRESENT ILLNESS Krystina is a pleasant 28-year-old female who presents today for evaluation of right ankle pain. Patient notes that she rolled her ankle today work. Patient states she had immediate pain and notices some swelling. Patient denies hearing any snap, crackle, pop when rolling her ankle. Patient has nottaken any [id number] medication for the pain. Previous history of injury or trauma to the foot or ankle on the right side. The following portions of the patient's history were reviewed and updated as appropriate: allergies, current medications, family history, medical history, social history, surgical history, and problem list. OBJECTIVE PHYSICAL EXAM Vitals and nursing note reviewed. Constitutional Appearance: Normal appearance. HENT Nose: Nose normal. Eyes Extraocular Movements: Extraocular movements intact. Conjunctiva/sclera: Conjunctivae normal. Pupils: Pupils are equal, round, and reactive to light. Cardiovascular Rate and Rhythm: Normal rate. Pulmonary Effort: Pulmonary effort is normal. Musculoskeletal Cervical back: Normal range of motion. Left ankle: Swelling present. No ecchymosis or lacerations. Tenderness present over the lateral malleolus. Decreased range of motion. Normal pulse. Skin General: Skin is warm and dry. Neurological General: No focal deficit present. Mental Status: She is alert and oriented to person, place, and time. ASSESSMENT / PLAN #1 Sprain Ankle Initial Right - DX Ankle Right 3+ Views; Future; Expected date: 04/01/2024 - ibuprofen (MOTRIN) 600 mg tablet; Take 1 tablet (600 mg total) by mouth every 6 (six) hours as needed for pain (pain)., Starting Sun04/01/2024, Normal - Occupational Medicine - General consult (clinic); Future; Expected date: 04/15/2024 Discussed with patient that x-ray is negative for fracture or dislocation. Discussed symptoms likely related to ankle sprain. Discussed RICE protocol, recommend patient take 600 mg of ibuprofen every6 hours, brace ankle when up active. Patient was provided with light duty instructions for work. Recommend follow up with occupational med in 2 weeks to clear for return to duty. Follow up in clinic with any new or worsening symptoms or if symptoms are not improving with prescribed treatment. documented in this encounter Plan of Treatment Upcoming Encounters Date Type Department Care Team (Late st Contact Info) Description 05/27/2024 8:15 AM CDT Office Visit Department of Occupational Medicine in [place], [place] [address] [place] [phone] Monique Linton P.A.-C., P.A. [address] [place] [phone] Scheduled Referrals Name Type Priority Associated Diagnoses Order Schedule Occupational Medicine - General consult (clinic) Outpatient Referral Routine Sprain Ankle Initial Right Expected: 04/15/2024, Expires: 07/02/2025 documented as of this encounter Results * DX Ankle Right 3+ Views [...] C.N.P., D.N.P. IMG DI AGNOSTIC IMAGING PROCEDURES documented in this encounter Visit Diagnoses Diagnosis Sprain Ankle Initial Right- Primary Pain Ankle Right documented in this encounter Care Teams Marketing Lead Relationship Specialty Start Date End Date Elsewhere, Pcp PCP - General Internal Medicine 02/09/22 documented as of this encounter
--- OUTSIDE RECORDS SUMMARY | 2024-05-02 09:08 | XMS_ITS | Encounter Summary ---
Author Organization [facility] Address [address] [place] [address] Care Team Providers Care Exercise Physiologist Certified Name Role Phone Elsewhere, Pcp Primary Care Provider Unavailabl e Encounter Details Date Type Department Care Team (Late st Contact Info) Description 04/02/2024 Clinical Communication Department of Family Medicine, [facility], in [place], [place] [address] [phone] Saida Osullivan, MARY, C.N.P., D.N.P. [address] [phone] Social History Tobacco Use Types Packs/Day Years Used Date Smoking Tobacco: Never Smokeless Tobacco: Never Alcohol Use Standard Drinks/Week Comments Not Currently [...] often do you attend chur ch or buddhism services? Never 09/08/2022 Do you belong to any clubs o r organizations such as jew groups, unions, fraternal or athletic groups, or [...] Answer Date Recorded PHQ-2 Score 0 06/29/2023 [facility] - Occupational Stress Questionnaire Answer [...] place to sleep or slept in a snf (including now)? No 09/08/2022 Nutrition Answer Date [...] PM CDT documented as of this encounter Miscellaneous Notes * Telephone Encounter - Yumiko Quintanilla - 04/03/2024 1:28 PM CDT Message addressed in another encounter. Patient sent a portal message regarding same information documented in this encounter Plan of Treatment Upcoming Encounters Date Type Department Care Team (Late st Contact Info) Description 05/27/2024 8:15 AM CDT Office Visit Department of Occupational Medicine in [place], [place] [address] [place] [phone] Monique Linton P.A.-C., P.A. [address], [place] [phone] documented as of this encounter Visit Diagnoses Not on filedocumented in this encounter Care Teams Exercise Physiologist Certified Relationship Specialty Start Date End Date Elsewhere, Pcp PCP - General Internal Medicine 02/09/22 documented as of this encounter
--- OUTSIDE RECORDS SUMMARY | 2024-05-02 09:08 | XMS_ITS | Encounter Summary ---
Author Organization [facility] Address [address] [place] [address] Care Team Providers Care Hand Fretted Instrument Maker Name Role Phone Elsewhere, Pcp Primary Care Provider Unavailabl e Reason for Referral * Outpatient (Routine) - Closed Specialty Diagnoses / Procedures Referred By Elena hampton Referred To Contact Preventive Medicine Diagnoses Sprain Ankle Initial Right Monique Linton P.A.-C., P.A. [address] [address] [facility] Region Referral ID Status Reason Start Date Expiration Date Visits Re quested Visits Authorized [id number] Closed 04/03/2024 10/03/2025 1 1 Reason for Visit * Reason Comments Work Related Injury DOI 04/01/[address] [facility] [place] * Outpatient (Routine) - Closed Specialty Diagnoses / Procedures Referred By Elena hampton Referred To Contact Occupational Medicine Diagnoses Sprain Ankle Initial Right Saida Osullivan APRN, C.N.P., D.N.P. [address] [place] [address] [facility] Region Referral ID Status Reason Start Date Expiration Date Visits Re quested Visits Authorized [id number] Closed 04/01/2024 10/01/2025 1 1 Encounter Details Date Type Department Care Team (Latest Contact Info) Description 04/03/2024 2:15 PM CDT Comprehensive Visit Department of Occupational Medicine in [place], [place] [address], [place] [address] Monique Linton P.A.-C., P.A. [address] [place] [address] Sprain Ankle Initial Right Social History [...] How often do you attend chur or bahai services? Never 09/08/2022 Do you belong to any clubs o r organizations such as adventism groups, unions, fraternal or athletic groups, or [...] Answer Date Recorded PHQ-2 Score 0 06/29/2023 [facility] - Occupational Stress Questionnaire Answer Date Recorded [...] place to sleep or slept in a senior care (including now)? No 09/08/2022 Nutrition Answer Date [...] Sign Reading Time Taken Comments Blood Pressure 123/74 04/03/2024 2:48 PM CDT Pulse 94 04/03/2024 2:48 PM CDT Temperature - - Respiratory Rate - - Oxygen Saturation - - Inhaled Oxygen Concentration - - Weight - - Height - - Body Mass Index - - documented in this encounter Progress Notes * Monique Linton P.A.-Jenny., P.A. 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 female who presents today for evaluation of a right ankle injury that occurred on 04/01/24 at work. The patient reports that she was walking on the sidewalk and may have tripped due to the uneven ground, causing her to twist her right ankle. She was seen in the same day clinic on the [facility], where right ankle x-rays were negative for any acute osseous injury. She was diagnosed with a sprain and given work restrictions and instructions for conservative cares. She presents today mainly to complete paperwork for her employer, as her employer requires that her paperwork be signed by an M.D. Today, Krystina reports Pain Score: 7/10; Pain Loc: Ankle. Quality described as aching. Her pain ismainly located over the lateral aspect of the ankle. Pain does not radiate. Pain is alleviated by ice & elevation and aggravated by walking & stairs. She has been using OTC analgesics for pain control with relief. She is known to our department for a prior work-related left ankle sprain which occurred in June 2023, and she does still have some Celebrex at home from that injury. She has not taken any of it recently. She states that her current ankle sprain does not feel as severe yadira prior one. Previous injury or condition: Denies any prior injuries, surgeries, or conditions of the right ankle. Occupational Medicine Consultation Document complete and reviewed, please see scanned document for details. Social and Occupational History: She works for [employer], duration of employment: 3 years. She works full-time 5 days per week for 8 hours per shift. 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 However, she needs official paperwork to be signed by an M.D. Past Medical History: Diagnosis Date Abnormal Pap Smear Cervix Bleeding Vaginal Trimester First (HCC) 05/04/2022 Gallbladder Disorder Hypothyroidism Current Outpatient Medications on File Prior to Visit Medication Sig Dispense Refill ibuprofen (MOTRIN) 600 mg tablet Take 1 tablet (600 mg total) by mouth every 6 (six) hours as needed for pain (pain). 120 tablet 0 levothyroxine (SYNTHROID, LEVOTHROID) 137 mcg tablet Take 137 mcg by mouth every morning before breakfast. metFORMIN XR (GLUCOPHAGE-XR) 500 mg 24 hr tablet Take 1,000 mg by mouth daily with breakfast. vits96/iron fum/folic ( vitamin-ferrous fumarate-FA) 27 mg iron- 800 mcg per tablet Take 2 tablets by mouth daily. celecoxib (CeleBREX) 200 mg capsule TAKE 1 CAPSULE(200 MG) BY MOUTH TWICE DAILY (Patient not taking: Reported on 04/03/2024) 180 capsule 3 levothyroxine (SYNTHROID, LEVOTHROID) 100 mcg tablet TAKE 1 TABLET(100 MCG) BY MOUTH DAILY (Patientnot taking: Reported on 04/03/2024) 90 tablet 2 No current facility-administered medications on file prior to visit. ROS: Musculoskeletal: - Negative for back pain, joint swelling and muscle pain/stiffness. - Positive for right ankle pain The following systems were negative: Constitutional, Skin, Respiratory, Cardiovascular, Hematologic, Neurological BP 123/74 (BP Location: Right arm, Patient Position: Sitting, Cuff Size: Regular) Pulse 94 PHYSICAL EXAM: General: Alert, relaxed female, under no acute distress. Skin: Warm, moist. No lesions or ecchymosis. HEENT: Normocephalic, atraumatic. Pupils equal, round, reactive to light and accommodation. Extraocular movements intact. Musculoskeletal: Ankle Exam: right. Gait: mildly antalgic. Inspection: No gross abnormalities on inspection. No significant edema, ecchymosis, or deformity. Palpation: Mild tenderness to palpation over the lateral aspect of the ankle. Range of Motion: Plantar Flexion within normal limits. Dorsiflexion within normal limits. Inversionwithin normal limits. Eversion within normal limits. Toe flexion and abduction normal. Strength: Resisted Plantar Flexion 5/5. Resisted Dorsiflexion 5/5. Testing: Anterior Drawer test: Negative. Neurovascular: Sensation: normal. Color: flesh tone . Pulses: Dorsalis Pedis 2+. Posterior Tibial 2+. Capillary Refill: < 3 seconds. Diagnostics: DX ANKLE RIGHT 3+ VIEWS Result date: 04/01/24 IMPRESSION: No ankle fracture. Ankle mortise is symmetrical. Small Achilles and plantar calcaneal spurs. ASSESSMENT / PLAN 1. Sprain Ankle Initial Right MMI: No PPD: Undetermined Work Related: Yes 28 y/o female presents for evaluation of a right ankle twisting injury that occurred at work on 04/01/24. She is known to this department for a prior work- related left ankle sprain that occurred in June 2023. She was seen in the same day clinic on the [facility], where x-rays of the right ankle were negative. Clinical picture is consistent with a sprain. Instructions were reviewed for conservative cares, including bracing, RICE measures, and OTC analgesics PRN. Work restrictions were outlined for limited lifting and climbing, with allowance to sit and elevate the right ankle at least 15 minutes per hour. Further details below. Will plan for return visit in our clinic in approximately 2 weeks. May return sooner if concerns arise. Discussed worsening symptoms that will bring the patient back sooner for further evaluation. Medications: OTC NSAIDs and/or Tylenol PRN. Side effects reviewed, including any potential driving restrictions. Next step if no significant improvement: rehab vs further imaging. 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 Thank you for letting me be involved in your care. documented in this encounter Plan of Treatment Upcoming Encounters Date Type Department Care Team (Late st Contact Info) Description 05/27/2024 8:15 AM CDT Office Visit Department of Occupational Medicine in [place], [place] [address] [phone] Monique Linton P.A.-C., P.A. [address] [phone] Scheduled Referrals Name Type Priority Associated Diagnoses Order Schedule Preventive Medicine office visit (clinic) Outpatient Referral Routine Sprain Ankle Initial Right Expected: 04/17/2024, Expires: 07/04/2025 documented as of this encounter Visit Diagnoses Diagnosis Sprain Ankle Initial Right documented in this encounter Care Teams Hand Fretted Instrument Maker Relationship Specialty Start Date End Date Elsewhere, Pcp PCP - General Internal Medicine 02/09/22 documented as of this encounter
--- OUTSIDE RECORDS SUMMARY | 2024-05-02 09:08 | XMS_ITS | Encounter Summary ---
Author Organization [facility] Address [address] [place] [address] Care Team Providers Care Presto Log Operator Name Role Phone Elsewhere, Pcp Primary Care Provider Unavailabl e Reason for Referral * Outpatient (Routine) - Closed Specialty Diagnoses / Procedures Referred By Blanquitaac t Referred To Contact Diagnoses Pain Ankle Right Procedures DX Ankle Right 3+ Views Saida Osullivan APRN, C.N.P., D.N.P. [address] [address] [facility] Region Referral ID Status Reason Start Date Expiration Date Visits Re quested Visits Authorized [id number] Closed 04/01/2024 04/01/2025 1 1 Reason for Visit * Outpatient (Routine) - Closed Specialty Diagnoses / Procedures Referred By Contac t Referred To Contact Diagnoses Pain Ankle Right Procedures DX Ankle Right 3+ Views Saida Osullivan APRN, C.N.P., D.N.P. [address] [place] [address] [facility] Region Referral ID Status Reason Start Date Expiration Date Visits Re quested Visits Authorized [id number] Closed 04/01/2024 04/01/2025 1 1 Encounter Details Date Type Department Care Team (Latest Contact Info) Description 04/01/2024 4:07 PM CDT - 04/01/2024 11:59 PM CDT Hospital Encounter Department of Radiology in [place], [place] [address] [place] [address] Saida Osullivan, MARY, C.N.P., D.N.P. [address], [place] [address] Pain Ankle Right Discharge Disposition: Home or Self Care Social History Tobacco Use Types Packs/Day Years [...] often do you attend chur ch or gnosticism services? Never 09/08/2022 Do you belong to any clubs o r organizations such as hinduism groups, unions, fraternal or athletic groups, or [...] Answer Date Recorded PHQ-2 Score 0 06/29/2023 [facility] - Occupational Stress Questionnaire Answer Date [...] place to sleep or slept in a care home (including now)? No 09/08/2022 Nutrition Answer [...] PM CDT documented as of this encounter Medications at Time of Discharge Medication Sig Dispensed Refills Start Date End Date celecoxib (CeleBREX) 200 mg capsuleIndications:Pain Foot Left,Sprain Foot Initial Left TAKE 1 CAPSULE(200 MG) BY MOUTH TWICE DAILY 180 capsule 3 11/02/2023 ibuprofen (MOTRIN) 600 mg tabletIndications:Sprai n Ankle Initial Right Take 1 tablet (600 mg total) by mouth every 6 (six) hours as needed for pain (pain). 120 tablet 04/01/2024 levothyroxine (SYNTHROID, LEVOTHROID) 100 mcg tablet TAKE 1 TABLET(100 MCG) BY MOUTH DAILY 90 tablet 2 09/19/2023 levothyroxine (SYNTHROID, LEVOTHROID) 137 mcg tablet Take 137 mcg by mouth every morning before breakfast. 03/19/2024 metFORMIN XR (GLUCOPHAGE-XR) 500 mg 24 hr tablet Take 1,000 mg by mouth daily with breakfast. 09/04/2023 vits96/iron fum/folic ( vitamin-ferrous fumarate-FA) 27 mg iron- 800 mcg per tablet Take 2 tablets by mouth daily. documented as of this encounter Plan of Treatment Upcoming Encounters Date Type Department Care Team (Late st Contact Info) Description 05/27/2024 8:15 AM CDT Office Visit Department of Occupational Medicine in [place], [place] [address] [place] [phone] Monique Linton P.A.-C., P.A. [address] [phone] documented as of this encounter Procedures Procedure Name Priority Date/Time Associated Diagnosis Comments DX ANKLE RIGHT 3+ VIEWS RAD - Semiurgent (Fast; most ED patients; some inpatients) 04/01/2024 4:22 PM CDT Pain Ankle Right documented in this encounter Results * DX Ankle Right [...] Small Achilles andplantar calcaneal spurs. Saida Osullivan APRN C.N.P., D.N.P. IMG DI AGNOSTIC IMAGING PROCEDURES documented in this encounter Visit Diagnoses Diagnosis Pain Ankle Right documented in this encounter Care Teams Presto Log Operator Relationship Specialty Start Date End Date Elsewhere, Pcp PCP - General Internal Medicine 02/09/22 documented as of this encounter
== END 2024-05-02 09:04 | disposition home or self-care (01) ==
PROVIDERS: PCP Family Medicine; Visit Provider Physician Assistant
DX: Z01.419 Encounter for gynecological examination (general) (routine) without abnormal findings (principal); D64.9 Anemia, unspecified; N92.6 Irregular menstruation, unspecified; N93.8 Other specified abnormal uterine and vaginal bleeding; Z12.4 Encounter for screening for malignant neoplasm of cervix
CPT/HCPCS: 82728; 84443

== ENCOUNTER 2024-05-06 08:57 | Outpatient (CLI) | payer BC, SELFPAY ==
--- OUTSIDE RECORDS SUMMARY | 2024-05-06 09:01 | XMS_ITS | Clinical Summary ---
Author Organization [facility] Address [address] [place] [address] Care Team Providers Care Cold Meat Cook Name Role Phone Elsewhere, Pcp Primary Care Provider Unavailabl e Source Comments Patient records contain information from all sites at [facility]. For routine questions regarding patient records, call [phone] during business hours, M-F 8:00 AM - 5:00 PM Central Time. Record requests for emergency care only can be directed to [phone] at any time.[facility] Allergies Active Allergy Reactions Criticality Noted [...] CDT Office Visit Department of Occupational Medicine [address] [phone] Monique Linton P.A.-C., P.A. Sprain Ankle Initial Right 04/03/2024 2:15 PM CDT Comprehensive Visit Department of Occupational Medicine in [address] [phone] Monique Linton P.A.-C., P.A. Sprain Ankle Initial Right 04/02/2024 Clinical Communication Department of Family Medicine, [facility], [address] [phone] Saida Osullivan, MARY, C.N.P., D.N.P. 04/01/2024 4:30 PM CDT Office Visit Department of Family Medicine, [facility], in [place], [place] [address] [place] [address] Saida Osullivan, MARY, C.N.P., D.N.P. Sprain Ankle Initial Right (Primary Dx) 04/01/2024 4:07 PM CDT - 04/01/2024 11:59 PM CDT Hospital Encounter Department of Radiology in [place], [place] [address] [place] [address] Saida Osullivan APRN, C.N.P., D.N.P. Pain Ankle [...] How often do you attend chur or taoist services? Never 09/08/2022 Do you belong to any clubs o r organizations such as yazdanism groups, unions, fraternal or athletic groups, or [...] Answer Date Recorded PHQ-2 Score 0 06/29/2023 [facility] - Occupational Stress Questionnaire Answer Date [...] (287 lb 0.6 oz) 09/08/2022 8:39 AM COMPLEX HUMAN RESOURCES MANAGER Height 161.9 cm (5' 3.74) 09/08/2022 10:[address] Body Mass Index 49.68 09/08/2022 8:39 AM COMPLEX HUMAN RESOURCES MANAGER Plan of Treatment Upcoming Encounters Date Type Department Care Team (Late st Contact Info) Description 05/27/2024 8:15 AM CDT Office Visit Department of Occupational Medicine in [place], [place] [address] [phone] Monique Linton P.A.-Jenny., P.A. [address] [place] [phone] Health Maintenance Due Date Last Done [...] NG HORMONE-SENSITIVE (S-TSH) Routine 09/08/2022 10:07 AM COMPLEX HUMAN RESOURCES MANAGER Body Mass Index 50.0 To 59.9 Adult [...] (Thyroid-Stimulating Hormone - Sensitive) (09/08/2022 10:07 AM COMPLEX HUMAN RESOURCES MANAGER) Pathologist [facility] TSH, Sensitive 4.4(H) 0.3 - 4.2 mIU/L 09/08/2022 11:18 AM COMPLEX HUMAN RESOURCES MANAGER DTL Blood (Blood, Venous) 09/08/2022 10:07 AM COMPLEX HUMAN RESOURCES MANAGER 09/08/2022 10:51 AM COMPLEX HUMAN RESOURCES MANAGER Markus Villar M.D. LAB BLOOD ADD- ON [facility] [address] [place] [address], [facility] [address] [place] [address] * Chlamydia / Gonorrhoeae Amplified RNA (04/14/2022 [...] LAB MICROBIOLOGY - G ENERAL ORDERABLES [facility] [address] [place] [address], [place] [address] * HPV with Genotyping, PCR, ThinPrep (02/09/2022 9:52 AM CDT) HPV with Genotyping, ThinPrep, PCR Negative Negative 02/10/2022 2:30 PM CDT [facility] Comment: Negative for high risk HPV by nucleic acid amplification. ??The following high risk HPV types were not detected: 16, 18, 31, 33, 35, 39, 45, 51, 52, 56, 58, 59, 66, and 68 Varies 02/09/2022 9:52 AM CDT 02/10/2022 7:11 AM CDT Gale Kenyon APRN, C.N.P. LAB MICROBI OLOGY - GENERAL ORDERABLES [facility] [address] [place] [address], [place] [address] from Last 3 Months or Most Recently Relevant to Health Maintenance Care Teams Cold Meat Cook Relationship Specialty Start Date End Date Elsewhere, Pcp PCP - General Internal Medicine 02/09/22
--- OUTSIDE RECORDS SUMMARY | 2024-05-06 09:01 | XMS_ITS | Encounter Summary ---
Author Organization [facility] Address [address] [place] [address] Care Team Providers Care Dealer Development Manager Name Role Phone Elsewhere, Pcp Primary Care Provider Unavailabl e Reason for Referral * Outpatient (Routine) - Authorized Specialty Diagnoses / Procedures Referred By Contac t Referred To Contact Preventive Medicine Diagnoses Sprain Ankle Initial Right Monique Linton P.A.-C., P.A. [address] [address] [facility] Referral ID Status Reason Start Date Expiration Date V isits Requested Visits Authorized [id number] Authorized 04/15/2024 10/15/2025 1 1 * Physical Therapy (Routine) - Authorized Specialty Diagnoses / Procedures Referred By Contac t Referred To Contact Diagnoses Sprain Ankle Initial Right Monique Linton P.A.-C., P.A. [address] [place] [address] [facility] [address] [address] Phone: [phone] Referral ID Status Reason Start Date Expiration Date Visits Requested Visits Authorized [id number] Authorized Patient Preference 04/15/2024 10/15/2025 1 1 Reason for Visit * Reason Comments Work Related Injury DOI 04/01/24 [facility] * Outpatient (Routine) - Closed Specialty Diagnoses / Procedures Referred By Elena hampton Referred To Contact Preventive Medicine Diagnoses Sprain Ankle Initial Right Monique Linton P.A.-C., P.A. [address] [phone] [facility] Region Referral ID Status Reason Start Date Expiration Date Visits Re quested Visits Authorized [id number] Closed 04/03/2024 10/03/2025 1 1 Encounter Details Date Type Department Care Team (Latest Contact Info) Description 04/15/2024 10:30 AM CDT Office Visit Department of Occupational Medicine in [place], [place] [address] [phone] Monique Linton P.A.-C., P.A. [address] [place] [phone] Sprain Ankle Initial Right Social History [...] often do you attend chur ch or latter day services? Never 09/08/2022 Do you belong to any clubs o r organizations such as sabianism groups, unions, fraternal or athletic groups, or [...] Answer Date Recorded PHQ-2 Score 0 06/29/2023 [facility] Questionnaire Answer Date [...] place to sleep or slept in a prison (including now)? 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 female [...] Social and Occupational History: She works for [employer], duration of employment: 3 years. She works [...] evaluation and treatment. 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 Thank you for letting me be involved in your care. documented in this encounter Plan of Treatment Upcoming Encounters Date Type Department Care Team (Late st Contact Info) Description 05/27/2024 8:15 AM CDT Office Visit Department of Occupational Medicine in [place], [place] [address] [phone] Monique Linton P.A.-C., P.A. [address] [phone] Scheduled Referrals Name Type Priority Associated Diagnoses Order Schedule Preventive Medicine office visit (clinic) Outpatient Referral Routine Sprain Ankle Initial Right Expected: 05/22/2024, Expires: 07/16/2025 documented as of this encounter Visit Diagnoses Diagnosis Sprain Ankle Initial Right documented in this encounter Care Teams Dealer Development Manager Relationship Specialty Start Date End Date Elsewhere, Pcp PCP - General Internal Medicine 02/09/22 documented as of this encounter
--- OUTSIDE RECORDS SUMMARY | 2024-05-06 09:01 | XMS_ITS | Encounter Summary ---
Author Organization [facility] Address [address] [place] [address] Care Team Providers Care Independent Driver Name Role Phone Elsewhere, Pcp Primary Care Provider Unavailabl e Reason for Referral * Outpatient (Routine) - Closed Specialty Diagnoses / Procedures Referred By Elena hampton Referred To Contact Occupational Medicine Diagnoses Sprain Ankle Initial Right Saida Osullivan APRN, C.N.P., D.N.P. [address] [phone] [facility] Region Referral ID Status Reason Start Date Expiration Date Visits Re quested Visits Authorized [id number] Closed 04/01/2024 10/01/2025 1 1 * Outpatient (Routine) - Closed Specialty Diagnoses / Procedures Referred By Elena hampton Referred To Contact Diagnoses Pain Ankle Right Procedures DX Ankle Right 3+ Views Saida Osullivan APRN, C.N.P., D.N.P. [address] [place] [address] [facility] Region Referral ID Status Reason Start Date Expiration Date Visits Re quested Visits Authorized [id number] Closed 04/01/2024 04/01/2025 1 1 Reason for Visit * Reason Comments Other Walking on the sidew alk, unsure of what caused her to twist her ankle but now has ankle pain and foot pain, happened this afternoon, reports a little swelling, Encounter Details Date Type Department Care Team (Late st Contact Info) Description 04/01/2024 4:30 PM CDT Office Visit Department of Family Medicine, [facility], in [place], [place] [address] [place] [phone] Saida Osullivan, MARY, C.N.P., D.N.P. [address], [place] [address] Sprain Ankle Initial Right (Primary [...] How often do you attend chur or christian services? Never 09/08/2022 Do you belong to any clubs o r organizations such as confucianist groups, unions, fraternal or athletic groups, or [...] Answer Date Recorded PHQ-2 Score 0 06/29/2023 [facility] - Occupational Stress Questionnaire Answer [...] rolling her ankle. Patient has nottaken any [id number] medication for the pain. Previous history of [...] Office Visit Department of Occupational Medicine in [place], [place] [address] [place] [address] Monique Linton P.A.-C., P.A. [address] [place] [phone] Scheduled Referrals Name Type Priority Associated Diagnoses [...] Right documented in this encounter Care Teams Independent Driver Relationship Specialty Start Date End Date Elsewhere, Pcp PCP - General Internal Medicine 02/09/22 documented as of this encounter
--- OUTSIDE RECORDS SUMMARY | 2024-05-06 09:01 | XMS_ITS | Encounter Summary ---
Author Organization [facility] Address [address] [place] [address] Care Team Providers Care Stock Counter Name Role Phone Elsewhere, Pcp Primary Care Provider Unavailabl e Encounter Details Date Type Department Care Team (Late st Contact Info) Description 04/02/2024 Clinical Communication Department of Family Medicine, [facility], in [place], [place] [address] [address] Saida Osullivan, MARY, C.N.P., D.N.P. [address] [address] Social History Tobacco Use Types [...] often do you attend chur ch or buddhist services? Never 09/08/2022 Do you belong to [...] Score 0 06/29/[address] [facility] - Occupational Stress Questionnaire Answer Date Recorded [...] place to sleep or slept in a chcf (including now)? No 09/08/2022 Nutrition Answer Date [...] Office Visit Department of Occupational Medicine in [place], [place] [address] [place] [address] Monique Linton P.A.-C., P.A. [address], [place] [address] documented as of this encounter Visit Diagnoses Not on filedocumented in this encounter Care Teams Stock Counter Relationship Specialty Start Date End Date Elsewhere, Pcp PCP - General Internal Medicine 02/09/22 documented as of this encounter
--- OUTSIDE RECORDS SUMMARY | 2024-05-06 09:01 | XMS_ITS | Continuity of Care Document ---
Author Organization [facility] Address [address] [place] [address] Phone Care Team Providers Care Brake Press Operator Name Role Phone Douglas Mckeon MD Unavailab [...] [facility], [address], [place], [id number], [place] tel:[phone] [facility] No Information Linda ontiveros [facility], [address] [place] [address], [address], [place], [id number], [place]. tel:[phone] Office/Outpat ient Visit,Est, Mod [facility], [address], [place], [id number], [place] tel:[phone] [facility] Specialty Lorraine Low back pain Linda ontiveros [facility], [address], [address], [place], [place], [id number], . tel:[phone] Referring Provider: Reza [facility] [employer] [address], [address], [address]. [phone] Office/Outpat ient Visit,Est, Mod [facility], [address], [place], [place], [id number], tel:[phone] [facility] Low back pain Linda rosaFlaquita [facility], [address] [place] [address], [address], [place], [place], [id number], . tel:[phone] Referring Provider: Reza [facility] [employer] [address], [address], [address]. tel:[phone] Office/Outpat ient Visit,New, Mod [facility], [address], [place], [place], [id number], [place] tel:[phone] [facility] Low back pain Linda rosaFlaquita [facility], [address] [place] [address], [address], [place], [place], [id number], . tel:[phone] Referring Provider: Reza [facility] [employer] [address], [address], [address]. tel:[phone] Family History Family Member Type Diagnosis Age At Onset No Information Payers Payer name Insurance type Covered alliance party ID Authoriza tion(s) [employer] CI [id number] Social History Type Description Quantity Date Captured [...]
--- OUTSIDE RECORDS SUMMARY | 2024-05-06 09:01 | XMS_ITS ---
Author Organization [facility] Address [address] [place] [address] Care Team Providers Care Hide And Skin Processing Worker Name Role Phone Unavailable Unavailable Unavailable Surgery Details Not on file Complications Check Surgery Details section. Procedure Estimated Blood Loss Check Surgery Details section. Procedure Findings Check Surgery Details section. Procedure Specimens Taken Check Surgery Details section.
--- OUTSIDE RECORDS SUMMARY | 2024-05-06 09:01 | XMS_ITS | Referral Summary ---
Author Organization [facility] Address [address] [place] [address] Care Team Providers Care Kettle Operator Name Role Phone Elsewhere, Pcp Primary Care Provider Unavailabl e Source Comments Patient records contain information from all sites at [facility]. For routine questions regarding patient records, call [phone] during business hours, M-F 8:00 AM - 5:00 PM Central Time. Record requests for emergency care only can be directed to [phone] at any time.[facility] Encounters Date Type Department Care Team Description 04/15/2024 10:30 AM CDT Office Visit Department of Occupational Medicine in [place], [place] [address] [place] [phone] Monique Linton P.A.-C., P.A. Sprain Ankle Initial Right 04/03/2024 2:15 PM CDT Comprehensive Visit Department of Occupational Medicine in [place], [place] [address] [place] [phone] Monique Linton P.A.-C., P.A. Sprain Ankle Initial Right 04/02/2024 Clinical Communication Department of Family Medicine, [facility], in [place], [place] [address] [place] [phone] Saida Osullivan APRN, C.N.P., D.N.P. 04/01/2024 4:07 PM CDT - 04/01/2024 11:59 PM CDT Hospital Encounter Department of Radiology in [place], [place] [address] [place] [phone] Saida Osullivan APRN C.N.P., D.N.P. Pain Ankle Right Discharge Disposition: Home or Self Care 04/01/2024 4:30 PM CDT Office Visit Department of Family Medicine, [facility], in [place], [place] [address] [place] [address] Saida Osullivan APRN, C.N.P., D.N.P. Sprain Ankle [...] How often do you attend chur or jainism services? Never 09/08/2022 Do you belong to any clubs o r organizations such as caodaism groups, unions, fraternal or athletic groups, or [...] Answer Date Recorded PHQ-2 Score 0 06/29/2023 [facility] - Occupational Stress [...] (287 lb 0.6 oz) 09/08/2022 8:39 AM GROUP DYNAMICS INSTRUCTOR Height 161.9 cm (5' 3.74) 09/08/2022 10:[address] Body Mass Index 49.68 09/08/2022 8:39 AM GROUP DYNAMICS INSTRUCTOR Plan of Treatment Upcoming Encounters Date Type Department Care Team (Late st Contact Info) Description 05/27/2024 8:15 AM CDT Office Visit Department of Occupational Medicine in [place], [place] [address] [address] Monique Linton P.A.-C., P.A. [address] [phone] Procedures Procedure Name Priority Date/Time Associated Diagnosis Comments DX ANKLE RIGHT 3+ VIEWS RAD - Semiurgent (Fast; most ED patients; some inpatients) 04/01/2024 4:22 PM CDT Pain Ankle Right THYROID-STIMULATI NG HORMONE-SENSITIVE (S-TSH) Routine 09/08/2022 10:07 AM GROUP DYNAMICS INSTRUCTOR Body Mass Index 50.0 To 59.9 Adult [...] (Thyroid-Stimulating Hormone - Sensitive) (09/08/2022 10:07 AM GROUP DYNAMICS INSTRUCTOR) Pathologist [facility] TSH, Sensitive 4.4(H) 0.3 - 4.2 mIU/L 09/08/2022 11:18 AM GROUP DYNAMICS INSTRUCTOR DTL Blood (Blood, Venous) 09/08/2022 10:07 AM GROUP DYNAMICS INSTRUCTOR 09/08/2022 10:51 AM GROUP DYNAMICS INSTRUCTOR Markus Villar M.D. LAB BLOOD ADD- ON [facility] [address] [place] [address], [place] [facility] [address] [place] [address] * Chlamydia / Gonorrhoeae Amplified RNA (04/14/2022 [...] - G ENERAL ORDERABLES Performing Organization Address City/[facility] Hospital/ZIP Co de Phone Number [facility] [address] [place] [address] * HPV with Genotyping, PCR, ThinPrep (02/09/2022 [...] APRNNEnoch LAB MICROBI OLOGY - GENERAL ORDERABLES [facility] [address] [place] [address] from Last 3 Months or Most Recently Relevant to Health Maintenance Care Teams Kettle Operator Relationship Specialty Start Date End Date Elsewhere, Pcp PCP - General Internal Medicine 02/09/22
--- OUTSIDE RECORDS SUMMARY | 2024-05-06 09:01 | XMS_ITS | Encounter Summary ---
Author Organization [facility] Address [address] [place] [address] Care Team Providers Care Toll Collector Supervisor Name Role Phone Elsewhere, Pcp Primary Care Provider Unavailabl e Reason for Referral * Outpatient (Routine) - Closed Specialty Diagnoses / Procedures Referred By Blanquitaac t Referred To Contact Diagnoses Pain Ankle Right Procedures DX Ankle Right 3+ Views Saida Osullivan APRN, C.N.P., D.N.P. [address] [phone] [facility] Region Referral ID Status Reason Start Date Expiration Date Visits Re quested Visits Authorized [id number] Closed 04/01/2024 04/01/2025 1 1 Reason for Visit * Outpatient (Routine) - Closed Specialty Diagnoses / Procedures Referred By Contac t Referred To Contact Diagnoses Pain Ankle Right Procedures DX Ankle Right 3+ Views Saida Osullivan APRN, C.N.P., D.N.P. [address] [place] [address] [facility] Region Referral ID Status Reason Start Date Expiration Date Visits Re quested Visits Authorized [id number] Closed 04/01/2024 04/01/2025 1 1 Encounter Details Date Type Department Care Team (Latest Contact Info) Description 04/01/2024 4:07 PM CDT - 04/01/2024 11:59 PM CDT Hospital Encounter Department of Radiology in [place], [place] [address] [place] [address] Saida Osullivan, MARY, C.N.P., D.N.P. [address], [place] [address] Pain Ankle Right Discharge Disposition: [...] often do you attend chur ch or hindu services? Never 09/08/2022 Do you belong to any clubs o r organizations such as jewish groups, unions, fraternal or athletic groups, or [...] Answer Date Recorded PHQ-2 Score 0 06/29/2023 [facility] - Occupational Stress Questionnaire Answer Date Recorded [...] place to sleep or slept in a fci (including now)? No 09/08/2022 Nutrition Answer Date [...] Office Visit Department of Occupational Medicine in [place], [place] [address] [place] [phone] Monique Linton P.A.-C., P.A. [address] [phone] documented as of this encounter Procedures Procedure [...] Right documented in this encounter Care Teams Toll Collector Supervisor Relationship Specialty Start Date End Date Elsewhere, Pcp PCP - General Internal Medicine 02/09/22 documented as of this encounter
--- OUTSIDE RECORDS SUMMARY | 2024-05-06 09:01 | XMS_ITS | Encounter Summary ---
Author Organization [facility] Address [address] [place] [address] Care Team Providers Care Hand Button Splitter Name Role Phone Elsewhere, Pcp Primary Care Provider Unavailabl e Reason for Referral * Outpatient (Routine) - Closed Specialty Diagnoses / Procedures Referred By Elena hampton Referred To Contact Preventive Medicine Diagnoses Sprain Ankle Initial Right Monique Linton P.A.-C., P.A. [address], [place] [address] [facility] Region Referral ID Status Reason Start Date Expiration Date Visits Re quested Visits Authorized [id number] Closed 04/03/2024 10/03/2025 1 1 Reason for Visit * Reason Comments Work Related Injury DOI 04/01/2024 [facility] * Outpatient (Routine) - Closed Specialty Diagnoses / Procedures Referred By Elena hampton Referred To Contact Occupational Medicine Diagnoses Sprain Ankle Initial Right Saida Osullivan APRN, C.N.P., D.N.P. [address] [place] [address] [facility] Region Referral ID Status Reason Start Date Expiration Date Visits Re quested Visits Authorized [id number] Closed 04/01/2024 10/01/2025 1 1 Encounter Details Date Type Department Care Team (Latest Contact Info) Description 04/03/2024 2:15 PM CDT Comprehensive Visit Department of Occupational Medicine in [place], [place] [address], [place] [address] Monique Linton P.A.-C., P.A. [address] [place] [address] Sprain Ankle Initial Right Social [...] How often do you attend chur or yazidism services? Never 09/08/2022 Do you belong to [...] Answer Date Recorded PHQ-2 Score 0 06/29/2023 [facility] - Occupational Stress Questionnaire Answer Date Recorded [...] place to sleep or slept in a assisted (including now)? 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 The patient reports that she was walking on the sidewalk and may have tripped due to the uneven ground, causing her to twist her right ankle. She was seen in the same day clinic on the [facility], where right ankle x-rays were [...] Social and Occupational History: She works for [employer], duration of employment: 3 years. 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 Thank you for letting me be involved in your care. documented in this encounter Plan of Treatment Upcoming Encounters Date Type Department Care Team (Late st Contact Info) Description 05/27/2024 8:15 AM CDT Office Visit Department of Occupational Medicine in [place], [place] [address] [phone] Monique Linton P.A.-C., P.A. [address] [phone] Scheduled Referrals Name Type Priority Associated Diagnoses Order Schedule Preventive Medicine office visit (clinic) Outpatient Referral Routine Sprain Ankle Initial Right Expected: 04/17/2024, Expires: 07/04/2025 documented as of this encounter Visit Diagnoses Diagnosis Sprain Ankle Initial Right documented in this encounter Care Teams Hand Button Splitter Relationship Specialty Start Date End Date Elsewhere, Pcp PCP - General Internal Medicine 02/09/22 documented as of this encounter
--- NOTE | 2024-05-06 09:15 | CRLHL7_ITS ---
For Patients: As a result of the Century Cures Act, medical imaging exams and procedure reports are released immediately into your electronic medical record. You may view this report before your referring provider. If you have questions, please contact your health care provider. INDICATION: Abnormal uterine bleeding COMPARISON: 05/03/2023 TECHNIQUE: 2D lund scale and color Doppler images were acquired of the pelvis using a transabdominal and transvaginal approach. FINDINGS: Sonographic images demonstrate a normal size and smooth outer contour of the uterus. Uterus measures 6.0 cm in length by 3.6 cm in AP diameter by 4.1 cm in transverse dimension. The myometrium has a normal uniform echotexture. The endometrial lining appears thickened and measures 15 mm in composite thickness. Previously, the endometrium measured 14 millimeters. Numerous cervical nabothian cysts are incidentally noted. The right ovary measures 2.9 x 1.6 x 2.0 cm in size and the left ovary measures 4.5 x 3.2 x 3.5 cm. Normal Doppler analysis of the left ovary. Right ovary difficult to obtain Doppler imaging due to posterior position. There are no suspicious fluid collections within the cul-de-sac. Simple anechoic left ovarian cyst measures 3.3 x 2.8 x 3.0 cm. IMPRESSION: Endometrial thickness 15 millimeters. No endometrial fluid or uterine fibroid. Dictated by Marlon Lala MD @ 05/06/2024 12:11:26 PM (Electronically Signed)
== END 2024-05-06 08:58 | disposition home or self-care (01) ==
LOC: US 08:58
PROVIDERS: PCP Family Medicine; Visit Provider Physician Assistant
DX: N93.8 Other specified abnormal uterine and vaginal bleeding (principal); N92.6 Irregular menstruation, unspecified; R93.89 Abnormal findings on diagnostic imaging of other specified body structures
CPT/HCPCS: 76830; 76856; 93976

== ENCOUNTER 2024-05-12 10:20 | Outpatient (CLI) | payer BC, SELFPAY | END 2024-05-12 10:21 | disposition home or self-care (01) | LOC: NFLDREF 05-14 03:42 | PROVIDERS: PCP Family Medicine; Referring Provider Family Medicine; Visit Provider Family Medicine | DX: E28.2 Polycystic ovarian syndrome (principal); E03.9 Hypothyroidism, unspecified; E66.01 Morbid (severe) obesity due to excess calories; E78.5 Hyperlipidemia, unspecified; Z13.6 Encounter for screening for cardiovascular disorders | CPT/HCPCS: 80053; 80061; 84443 ==

== ENCOUNTER 2024-06-17 09:16 | Day surgery (SDC) | payer BC, SELFPAY ==
--- OUTSIDE RECORDS SUMMARY | 2024-06-17 09:19 | XMS_ITS | Clinical Summary ---
Author Organization [facility] Address [address] [place] [address] Care Team Providers Care Multimedia Author Name Role Phone Elsewhere, Pcp Primary Care Provider Unavailabl e Source Comments Patient records contain information from all sites at [facility]. For routine questions regarding patient records, call [phone] during business hours, M-F 8:00 AM - 5:00 PM Central Time. Record requests for emergency care only can be directed to [phone] at any time.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 Aug 2016: Rheumatology consult Dr. Mark, MRI of sacroiliac joints ordered. Hypothyroidism 06/21/2007 Resolved Problems Problem Noted Date Diagnosed Date Resolved Date Bleeding Vaginal Trimester First 05/04/2022 06/27/2022 Encounters Date Type Department Care Team Description 05/27/2024 8:15 AM CDT Office Visit Department of Occupational Medicine in [address] [phone] Monique Linton P.A.-C., P.A., M.S. Sprain Ankle Initial Right 04/15/2024 10:30 AM CDT Office Visit Department of Occupational Medicine in [address] [phone] Monique Linton P.A.-C., P.A., M.S. Sprain Ankle Initial Right 04/03/2024 2:15 PM CDT Comprehensive Visit Department of Occupational Medicine in [address] [phone] Monique Linton P.A.-C., P.A., M.S. Sprain Ankle Initial Right 04/02/2024 Clinical Communication Department of [facility], [facility], in [address] [phone] Saida Osullivan APRN, C.N.P., D.N.P. 04/01/2024 4:30 PM CDT Office Visit Department of [facility] Medicine, [facility], in [address] [phone] Saida Osullivan APRN, C.N.P., D.N.P. Sprain Ankle Initial Right (Primary Dx) 04/01/2024 4:07 PM CDT - 04/01/2024 11:59 PM CDT Hospital Encounter Department of Radiology in [address] [phone] Saida Osullivan APRN, C.N.P., D.N.P. Pain Ankle [...] often do you attend chur ch or jewish services? Never 09/08/2022 Do you belong to any clubs o r organizations such as spiritism groups, unions, fraternal or athletic groups, or [...] Answer Date Recorded PHQ-2 Score 0 06/29/2023 [facility] of Occupat ional [facility] - Occupational Stress Questionnaire Answer [...] Sign Reading Time Taken Comments Blood Pressure 129/82 05/27/2024 8:22 AM CDT Pulse 101 05/27/2024 8:22 AM CDT Temperature 36.2 ??C (97.1 ??F) 04/01/2024 3:55 PM CD T Respiratory Rate 18 02/09/2022 9:10 AM CDT Oxygen Saturation - - Inhaled Oxygen Concentration - - Weight 130 kg (287 lb 0.6 oz) 09/08/2022 8:39 AM MANAGER CALL Height 161.9 cm (5' 3.74) 09/08/2022 10:[address] Body Mass Index 49.68 09/08/2022 8:39 AM MANAGER CALL Plan of Treatment Upcoming Encounters Date Type Department Care Team (Late st Contact Info) Description 06/27/2024 7:45 AM CDT Office Visit Department of Occupational Medicine in [place], [place] [address] [place] [address] Monique Lniton P.A.-C., P.A., M.S. [address] [place] [address] Health Maintenance Due Date Last Done [...] (#1) 2024 02/09/2022, 1998 Cervical Cancer Screening 05/02/20272023, 02/09/2022, 02/09/2022 DTaP,Tdap,and Td Vaccines (7 - Td or [...] NG HORMONE-SENSITIVE (S-TSH) Routine 09/08/2022 10:07 AM MANAGER CALL Body Mass Index 50.0 To 59.9 Adult [...] (Thyroid-Stimulating Hormone - Sensitive) (09/08/2022 10:07 AM MANAGER CALL) Pathologist [facility] TSH, Sensitive 4.4(H) 0.3 - 4.2 mIU/L 09/08/2022 11:18 AM MANAGER CALL DTL Blood (Blood, Venous) 09/08/2022 10:07 AM MANAGER CALL 09/08/2022 10:51 AM MANAGER CALL Markus Villar M.D. LAB BLOOD ADD- [facility] [address] [place] [address], [facility] [address] [place] [address] * Chlamydia / Gonorrhoeae Amplified RNA (04/14/2022 [...] - G ENERAL ORDERABLES Performing Organization Address City/[facility]/ZIP Co de Phone Number [facility] [address] [place] [address] * HPV with Genotyping, PCR, ThinPrep (02/09/2022 [...] APRNNEnoch LAB MICROBI OLOGY - GENERAL ORDERABLES [facility] [address] [place] [address], [place] [address] from Last 3 Months or Most Recently Relevant to Health Maintenance Care Teams Multimedia Author Relationship Specialty Start Date End Date Elsewhere, Pcp PCP - General Internal Medicine 02/09/22
--- OUTSIDE RECORDS SUMMARY | 2024-06-17 09:19 | XMS_ITS | Referral Summary ---
Author Organization [facility] Address [address] [place] [address] Care Team Providers Care Cruise Staff Member Name Role Phone Elsewhere, Pcp Primary Care Provider Unavailabl e Source Comments Patient records contain information from all sites at [facility]. For routine questions regarding patient records, call [phone] during business hours, M-F 8:00 AM - 5:00 PM Central Time. Record requests for emergency care only can be directed to [phone] at any time.[facility] Encounters Date Type Department Care Team Description 05/27/2024 8:15 AM CDT Office Visit Department of Occupational Medicine in [place], [place] [address] [place] [phone] Monique Linton P.A.-C., P.A., M.S. Sprain Ankle Initial Right 04/15/2024 10:30 AM CDT Office Visit Department of Occupational Medicine in [place], [place] [address] [place] [phone] Monique Linton P.A.-C., P.A., M.S. Sprain Ankle Initial Right 04/03/2024 2:15 PM CDT Comprehensive Visit Department of Occupational Medicine in [place], [place] [address] [place] [phone] Monique Linton P.A.-C., P.A., M.S. Sprain Ankle Initial Right 04/02/2024 Clinical Communication Department of Family Medicine, [facility], in [place], [place] [address] [phone] Saida Osullivan APRN, C.N.P., D.N.P. 04/01/2024 4:07 PM CDT - 04/01/2024 11:59 PM CDT Hospital Encounter Department of Radiology in [place], [place] [address] [place] [phone] Saida Osullivan APRN, C.N.P., D.N.P. Pain Ankle Right Discharge Disposition: Home or Self Care 04/01/2024 4:30 PM CDT Office Visit Department of Family Medicine, [facility], in [place], [place] [address] [place] [phone] Saida Osullivan APRN, C.N.P., D.N.P. Sprain Ankle [...] week 09/08/2022 How often do you attend [facility] or mormon services? Never 09/08/2022 Do you belong to [...] Answer Date Recorded PHQ-2 Score 0 06/29/2023 [facility] - Occupational Stress Questionnaire Answer Date Recorded [...] (287 lb 0.6 oz) 09/08/2022 8:39 AM POLYMERIZATION OVEN TENDER Height 161.9 cm (5' 3.74) 09/08/2022 10:[address] Body Mass Index 49.68 09/08/2022 8:39 AM POLYMERIZATION OVEN TENDER Plan of Treatment Upcoming Encounters Date Type Department Care Team (Late st Contact Info) Description 06/27/2024 7:45 AM CDT Office Visit Department of Occupational Medicine in [place], [place] [address] [place] [phone] Monique Linton P.A.-C., P.A., M.S. [address], [place] [phone] Procedures Procedure Name Priority Date/Time Associated Diagnosis Comments DX ANKLE RIGHT 3+ VIEWS RAD - Semiurgent (Fast; most ED patients; some inpatients) 04/01/2024 4:22 PM CDT Pain Ankle Right THYROID-STIMULATI NG HORMONE-SENSITIVE (S-TSH) Routine 09/08/2022 10:07 AM POLYMERIZATION OVEN TENDER Body Mass Index 50.0 To 59.9 Adult [...] (Thyroid-Stimulating Hormone - Sensitive) (09/08/2022 10:07 AM POLYMERIZATION OVEN TENDER) TSH, Sensitive 4.4(H) 0.3 - 4.2 mIU/L 09/08/2022 11:18 AM POLYMERIZATION OVEN TENDER DTL Blood (Blood, Venous) 09/08/2022 10:07 AM POLYMERIZATION OVEN TENDER 09/08/2022 10:51 AM POLYMERIZATION OVEN TENDER Markus Villar M.D. LAB BLOOD ADD- ON [facility] [address] [place] [address], [facility] DTL [facility] [address] [place] [address] * Chlamydia / Gonorrhoeae Amplified RNA (04/14/2022 [...] MICROBIOLOGY - G ENERAL ORDERABLES [facility] [place] [address], [facility] [place] [address] * HPV with Genotyping, PCR, ThinPrep (02/09/2022 [...] C.N.P. LAB MICROBI OLOGY - GENERAL ORDERABLES [facility] [address] [place] [address], [place] MK[facility] in [place] [address] [place] [address] from Last 3 Months or Most Recently Relevant to Health Maintenance Care Teams Cruise Staff Member Relationship Specialty Start Date End Date Elsewhere, Pcp PCP - General Internal Medicine 02/09/22
--- OUTSIDE RECORDS SUMMARY | 2024-06-17 09:19 | XMS_ITS | Continuity of Care Document ---
Author Organization [facility] Address [address] [place] [address] Phone Care Team Providers Care Dealership Manager Name Role Phone Douglas Mcekon MD Unavailab le Allergies, Adverse Reactions, Alerts [...] [facility], [address], [place], [id number], [place] tel:[phone] [facility] No Information Linda ontiveros [facility], [address] [place] [address], [address], [place], [id number], [place]. tel:[phone] Office/Outpat ient Visit,Est, Mod [facility], [address], [place], [id number], [place] tel:[phone] [facility] Specialty [place] Low back pain Linda ontiveros [facility], [address], [address], [place], [place], [id number], . tel:[phone] Referring Provider: Reza Mark [facility] [address], [address], [address]. [phone] Office/Outpat ient Visit,Est, Mod [facility], [address], [place], [place], [id number], tel:[phone] [facility] Low back pain Linda rosaFlaquita [facility], [address] [place] [address], [address], [place], [place], [id number], . tel:[phone] Referring Provider: Reza Mark [facility] [address], [address], [address]. tel:[phone] Office/Outpat ient Visit,New, Mod [facility], [address], [place], [place], [id number], [place] tel:[phone] [facility] Low back pain Linda rosaFlaquita [facility], [address] [place] [address], [address], [place], [place], [id number], . tel:[phone] Referring Provider: Reza Mark [facility] [address], [address], [address]. tel:[phone] Family History Family Member Type Diagnosis Age At Onset No Information Payers Payer name Insurance type Covered green party ID Authoriza tion(s) [employer] [id number] Social History Type Description Quantity Date Captured [...]
--- OUTSIDE RECORDS SUMMARY | 2024-06-17 09:19 | XMS_ITS ---
Author Organization [facility] Address [address] [place] [address] Care Team Providers Care Government Sales Manager Name Role Phone Unavailable Unavailable Unavailable Surgery Details Not on file Complications Check Surgery Details section. Procedure Estimated Blood Loss Check Surgery Details section. Procedure Findings Check Surgery Details section. Procedure Specimens Taken Check Surgery Details section.
--- OUTSIDE RECORDS SUMMARY | 2024-06-17 09:19 | XMS_ITS | Encounter Summary ---
Author Organization [facility] Address [address] [place] [address] Care Team Providers Care Tutor Name Role Phone Elsewhere, Pcp Primary Care Provider Unavailabl e Reason for Referral * Outpatient (Routine) - Authorized Specialty Diagnoses / Procedures Referred By Elena hampton Referred To Contact Preventive Medicine Diagnoses Sprain Ankle Initial Right Monique Linton P.A.-C., P.A., M.S. [address] [address] [facility] Region Referral ID Status Reason Start Date Expiration Date V isits Requested Visits Authorized [id number] Authorized 05/27/2024 11/26/2025 1 1 Reason for Visit * Reason Comments Work Related Injury DOI 04/01/24[facility] * Outpatient (Routine) - Closed Specialty Diagnoses / Procedures Referred By Elena hampton Referred To Contact Preventive Medicine Diagnoses Sprain Ankle Initial Right Monique Linton P.A.-C., P.A., M.S. [address] [place] [address] [facility] Region Referral ID Status Reason Start Date Expiration Date Visits Re quested Visits Authorized [id number] Closed 04/15/2024 10/15/2025 1 1 Encounter Details Date Type Department Care Team (Latest Contact Info) Description 05/27/2024 8:15 AM CDT Office Visit Department of Occupational Medicine in [place], [place] [address] [address] Monique Linton P.A.-C., P.A., M.S. [address] [place] [address] Sprain Ankle Initial Right Social [...] often do you attend chur ch or caodaism services? Never 09/08/2022 Do you belong to any clubs o r organizations such as amish groups, unions, fraternal or athletic groups, or [...] Answer Date Recorded PHQ-2 Score 0 06/29/2023 [facility] - Occupational Stress Questionnaire Answer Date [...] place to sleep or slept in a custodial (including now)? No 09/08/2022 Nutrition Answer Date [...] Pulse 101 05/27/2024 8:22 AM CDT Temperature - - Respiratory Rate - - Oxygen Saturation - - Inhaled Oxygen Concentration - - Weight - - Height - - Body Mass Index - - documented in this encounter Progress Notes * Monique Linton P.A.-Jenny., P.A. 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 To review, Krystina was walking on the sidewalk and tripped, likely due to the uneven ground, causing her to twist her right ankle. She was seen in the same day clinic on the [facility], where right ankle x-rays were negative for any acute osseous injury and she was diagnosed with a sprain. She was referred to our department for further management. With some persistent pain over the next few weeks, she was referred to PT at her last visit in our clinic. She has not yet started PT due to delays with work comp approval. Approval eventually came through, and she is scheduled [facility]. Today, Krystina reports Pain Score: 3/10; Pain Loc: Ankle (right). She reports some overall improvement in her symptoms compared to the last visit. However, she does still have pain when climbing or descending stairs. She also finds prolonged walking painful. She has been wearing her ankle brace essentially all of the time. Her pain remains mainly located over the lateral aspect of the ankle. Shehas been managing her pain with OTC ibuprofen PRN. 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 Social and Occupational History: She works for [employer], duration of employment: 3 years. She works full-time 5 days per week for 8 hours per shift. Past Medical History: Diagnosis Date Abnormal Pap Smear Cervix Bleeding Vaginal Trimester First (HCC) 05/04/2022 Gallbladder Disorder Hypothyroidism Previous injury or condition: Denies any prior injuries, surgeries, or conditions of the right ankle. She is known to our department for a prior work- related left ankle sprain which occurred in June 2023. Current Outpatient Medications on File Prior to [...] Constitutional, Skin, Respiratory, Cardiovascular, Hematologic, Neurological BP 129/82 (BP Location: Right arm, Patient Position: Sitting, Cuff Size: Regular) Pulse 101 PHYSICAL EXAM: General: Alert, relaxed female, under no acute distress. Skin: Warm, moist. No lesions or ecchymosis. HEENT: Normocephalic, atraumatic. Musculoskeletal: Ankle Exam: right. Gait: non-antalgic. Inspection: No gross abnormalities on inspection. Palpation: Mild tenderness to palpation over the lateral aspect of the ankle. No significant tenderness over the anterior, medial, or posterior aspects of the ankle. Range of Motion: Plantar Flexion within normal limits. Dorsiflexion within normal limits. Inversionwithin normal limits. Eversion remains slightly limited secondary to pain. Strength: Resisted Plantar Flexion 5/5. Resisted Dorsiflexion 5/5. Neurovascularly intact distally. Diagnostics: DX ANKLE RIGHT 3+ VIEWS Result date: 04/01/24 IMPRESSION: No ankle fracture. Ankle mortise is symmetrical. Small Achilles and plantar calcaneal spurs. ASSESSMENT / PLAN 1. Sprain Ankle Initial Right MMI: No PPD: Undetermined Work Related: Yes 28 y/o female presents for return visit in regard to a right ankle twisting injury that occurred atwork on 04/01/24. She reports overall some improvement in her symptoms compared to the last visit. She is scheduled to start PT tomorrow, as there were some delays with obtaining work comp approval. Encouraged her to proceed with PT as scheduled. Otherwise, she should continue with bracing, RICE measures, and OTC analgesics PRN. No change in work restrictions for now. Further details below. Will plan for return visit in our clinic in approximately 4 weeks. May return sooner if concerns arise. Discussed worsening symptoms that will bring the patient back sooner for further evaluation. Medications: OTC NSAIDs and/or Tylenol PRN. Next step if no significant improvement: consider advanced imaging. Work status: modified duty with restrictions as follows : Maximum lifting 20 lbs. Rare bending, kneeling, squatting/crouching, and twisting. No climbing, including stairs. Must be able to sit and elevate ankle at least 15 minutes per hour of standing/walking . See attached Report of Injury and Illness for full details. The patient indicates understanding of these issues and agrees with the plan. 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 Thank you for letting me be involved in your care. documented in this encounter Plan of Treatment Upcoming Encounters Date Type Department Care Team (Late st Contact Info) Description 06/27/2024 7:45 AM CDT Office Visit Department of Occupational Medicine in [place], [place] [address] [phone] Monique Linton P.A.-C., P.A., M.S. [address] [phone] Scheduled Referrals Name Type Priority Associated Diagnoses Order Schedule Preventive Medicine office visit (clinic) Outpatient Referral Routine Sprain Ankle Initial Right Expected: 06/27/2024, Expires: 08/27/2025 documented as of this encounter Visit Diagnoses Diagnosis Sprain Ankle Initial Right documented in this encounter Care Teams Tutor Relationship Specialty Start Date End Date Elsewhere, Pcp PCP - General Internal Medicine 02/09/22 documented as of this encounter
[2024-06-17] MEDS: LACTATED RINGERS 1000 ML 1,000 ML 100 ML IV (09:20)
--- OUTSIDE RECORDS SUMMARY | 2024-06-17 09:20 | XMS_ITS | Encounter Summary ---
Author Organization [facility] Address [address] [place] [address] Care Team Providers Care Remote Recruiter Name Role Phone Elsewhere, Pcp Primary Care Provider Unavailabl e Reason for Referral * Outpatient (Routine) - Closed Specialty Diagnoses / Procedures Referred By Contac t Referred To Contact Preventive Medicine Diagnoses Sprain Ankle Initial Right Monique Linton P.A.-C., P.A., M.S. [address] [place] [address] [facility] Referral ID Status Reason Start Date Expiration Date Visits Re quested Visits Authorized [id number] Closed 04/15/2024 10/15/2025 1 1 * Physical Therapy (Routine) - Authorized Specialty Diagnoses / Procedures Referred By Contac t Referred To Contact Diagnoses Sprain Ankle Initial Right Monique Linton P.A.-C., P.A., M.S. [address] [place] [address] [facility] [address] [address] Phone: [phone] Referral ID Status Reason Start Date Expiration Date Visits Requested Visits Authorized [id number] Authorized Patient Preference 04/15/2024 10/15/2025 1 1 Reason for Visit * Reason Comments Work Related Injury DOI 04/01/24[facility] * Outpatient (Routine) - Closed Specialty Diagnoses / Procedures Referred By Elena hampton Referred To Contact Preventive Medicine Diagnoses Sprain Ankle Initial Right Monique Linton P.A.-C., P.A., M.S. [address] [address] [facility] Region Referral ID Status Reason Start Date Expiration Date Visits Re quested Visits Authorized [id number] Closed 04/03/2024 10/03/2025 1 1 Encounter Details Date Type Department Care Team (Latest Contact Info) Description 04/15/2024 10:30 AM CDT Office Visit Department of Occupational Medicine in [place], [place] [address] [phone] Monique Linton P.A.-C., P.A., M.S. [address] [phone] Sprain Ankle Initial Right Social History [...] How often do you attend chur or zoroastrian services? Never 09/08/2022 Do you belong to any clubs o r organizations such as adventist groups, unions, fraternal or athletic groups, or [...] Answer Date Recorded PHQ-2 Score 0 06/29/2023 [facility] Questionnaire Answer Date [...] this encounter Progress Notes * Monique Linton P.A.-C., P.A. 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 To review, Krystina was walking on the sidewalk and tripped, likely due to the uneven ground, causing her to twist her right ankle. She was seen in the same day clinic on the [facility], where right ankle x-rays were negative [...] Social and Occupational History: She works for [employer], duration of employment: 3 years. She works [...] evaluation and treatment. 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 Thank you for letting me be involved in your care. documented in this encounter Plan of Treatment Upcoming Encounters Date Type Department Care Team (Late st Contact Info) Description 06/27/2024 7:45 AM CDT Office Visit Department of Occupational Medicine in [place], [place] [address] [phone] Monique Linton P.A.-C., P.A., M.S. [address] [phone] Scheduled Referrals Name Type Priority Associated Diagnoses Order Schedule Preventive Medicine office visit (clinic) Outpatient Referral Routine Sprain Ankle Initial Right Expected: 05/22/2024, Expires: 07/16/2025 documented as of this encounter Visit Diagnoses Diagnosis Sprain Ankle Initial Right documented in this encounter Care Teams Remote Recruiter Relationship Specialty Start Date End Date Elsewhere, Pcp PCP - General Internal Medicine 02/09/22 documented as of this encounter
--- OUTSIDE RECORDS SUMMARY | 2024-06-17 09:20 | XMS_ITS | Encounter Summary ---
Author Organization [facility] Address [address] [place] [address] Care Team Providers Care Supervisor Typesetting Name Role Phone Elsewhere, Pcp Primary Care Provider Unavailabl e Encounter Details Date Type Department Care Team (Late st Contact Info) Description 04/02/2024 Clinical Communication Department of Family Medicine, [facility], in [place], [place] [address] [phone] Saida Osullivan, MARY, C.N.P., D.N.P. [address] [phone] Social History Tobacco Use Types [...] often do you attend chur ch or mu-ism services? Never 09/08/2022 Do you belong to any clubs o r organizations such as episcopalian groups, unions, fraternal or athletic groups, or [...] Answer Date Recorded PHQ-2 Score 0 06/29/2023 [facility] - Occupational Stress Questionnaire Answer Date [...] Office Visit Department of Occupational Medicine in [place], [place] [address] [place] [address] Monique Linton P.A.-C., P.A., M.S. [address] [facility] [place] [address] documented as of this encounter Visit Diagnoses Not on filedocumented in this encounter Care Teams Supervisor Typesetting Relationship Specialty Start Date End Date Elsewhere, Pcp PCP - General Internal Medicine 02/09/22 documented as of this encounter
--- OUTSIDE RECORDS SUMMARY | 2024-06-17 09:20 | XMS_ITS | Encounter Summary ---
Author Organization [facility] Address [address] [place] [address] Care Team Providers Care Medical Sociologist Name Role Phone Elsewhere, Pcp Primary Care Provider Unavailabl e Reason for Referral * Outpatient (Routine) - Closed Specialty Diagnoses / Procedures Referred By Elena hampton Referred To Contact Preventive Medicine Diagnoses Sprain Ankle Initial Right Monique Linton P.A.-C., P.A., M.S. [address], [place] [address] [facility] Region Referral ID Status Reason Start Date Expiration Date Visits Re quested Visits Authorized [id number] Closed 04/03/2024 10/03/2025 1 1 Reason for Visit * Reason Comments Work Related Injury DOI 04/01/2024 [facility] [place] * Outpatient (Routine) - Closed Specialty Diagnoses / Procedures Referred By Elena hampton Referred To Contact Occupational Medicine Diagnoses Sprain Ankle Initial Right Saida Osullivan APRN, C.N.P., D.N.P. [address] [place] [address] [facility] Region Referral ID Status Reason Start Date Expiration Date Visits Re quested Visits Authorized [id number] Closed 04/01/2024 10/01/2025 1 1 Encounter Details Date Type Department Care Team (Latest Contact Info) Description 04/03/2024 2:15 PM CDT Comprehensive Visit Department of Occupational Medicine in [place], [place] [address] [place] [phone] Monique Linton P.A.-Jenny., P.A., M.S. [address] [place] [phone] Sprain Ankle Initial Right Social History Tobacco [...] How often do you attend chur or rastafarian services? 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 female [...] Social and Occupational History: She works for [employer], duration of employment: 3 years. She works full-time 5 days per week for 8 hours per shift. 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 However, she needs official paperwork to be signed by an M.Dottie. 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 Thank you for letting me be involved in your care. documented in this encounter Plan of Treatment Upcoming Encounters Date Type Department Care Team (Late st Contact Info) Description 06/27/2024 7:45 AM CDT Office Visit Department of Occupational Medicine in [place], [place] [address] [phone] Monique Linton P.A.-C., P.A., M.S. [address] [place] [phone] Scheduled Referrals Name Type Priority Associated Diagnoses Order Schedule Preventive Medicine office visit (clinic) Outpatient Referral Routine Sprain Ankle Initial Right Expected: 04/17/2024, Expires: 07/04/2025 documented as of this encounter Visit Diagnoses Diagnosis Sprain Ankle Initial Right documented in this encounter Care Teams Medical Sociologist Relationship Specialty Start Date End Date Elsewhere, Pcp PCP - General Internal Medicine 02/09/22 documented as of this encounter
--- OUTSIDE RECORDS SUMMARY | 2024-06-17 09:20 | XMS_ITS | Encounter Summary ---
Author Organization [facility] Address [address] [place] [address] Care Team Providers Care Gas Maker Helper Name Role Phone Elsewhere, Pcp Primary Care Provider Unavailabl e Reason for Referral * Outpatient (Routine) - Closed Specialty Diagnoses / Procedures Referred By Elena hampton Referred To Contact Occupational Medicine Diagnoses Sprain Ankle Initial Right Saida Osullivan APRN, C.N.P., D.N.P. [address] [place] [address] [facility] Region Referral ID Status Reason Start Date Expiration Date Visits Re quested Visits Authorized [id number] Closed 04/01/2024 10/01/2025 1 1 * Outpatient (Routine) - Closed Specialty Diagnoses / Procedures Referred By Elena hampton Referred To Contact Diagnoses Pain Ankle Right Procedures DX Ankle Right 3+ Views Saida Osullivan APRN, C.N.P., D.N.P. [address] [place] [address] [facility] Region Referral ID Status Reason Start Date Expiration Date Visits Re quested Visits Authorized [id number] Closed 04/01/2024 04/01/2025 1 1 Reason for Visit * Reason Comments Other Walking on the sidew alk, unsure of what caused her to twist her ankle but now has ankle pain and foot pain, happened this afternoon, reports a little swelling, Encounter Details Date Type Department Care Team (Late st Contact Info) Description 04/01/2024 4:30 PM CDT Office Visit Department of Family Medicine, [facility], in [place], [place] [address] [place] [phone] Saida Osullivan, MARY, C.N.P., D.N.P. [address], [place] [address] Sprain Ankle Initial Right (Primary [...] How often do you attend chur or uatsdin services? Never 09/08/2022 Do you belong to any clubs o r organizations such as methodist groups, unions, fraternal or athletic groups, or [...] Answer Date Recorded PHQ-2 Score 0 06/29/2023 [facility] [...] rolling her ankle. Patient has nottaken any dwor-lmm-akhygir medication for the pain. Previous history of [...] Office Visit Department of Occupational Medicine in [place], [place] [address] [place] [address] Monique Linton P.A.-C., P.Joo., M.S. [address] [place] [phone] Scheduled Referrals Name Type Priority Associated Diagnoses [...] Right documented in this encounter Care Teams Gas Maker Helper Relationship Specialty Start Date End Date Elsewhere, Pcp PCP - General Internal Medicine 02/09/22 documented as of this encounter
--- OUTSIDE RECORDS SUMMARY | 2024-06-17 09:20 | XMS_ITS | Encounter Summary ---
Author Organization [facility] Address [address] [place] [address] Care Team Providers Care Cephalometric Analyst Name Role Phone Elsewhere, Pcp Primary Care Provider Unavailabl e Reason for Referral * Outpatient (Routine) - Closed Specialty Diagnoses / Procedures Referred By Blanquitaac t Referred To Contact Diagnoses Pain Ankle Right Procedures DX Ankle Right 3+ Views Saida Osullivan APRN, C.N.P., D.N.P. [address] [phone] [facility] Region Referral ID Status Reason Start Date Expiration Date Visits Re quested Visits Authorized [id number] Closed 04/01/2024 04/01/2025 1 1 Reason for Visit * Outpatient (Routine) - Closed Specialty Diagnoses / Procedures Referred By Contang t Referred To Contact Diagnoses Pain Ankle Right Procedures DX Ankle Right 3+ Views Saida Osullivan APRN, C.N.P., D.N.P. [address] [place] [address] [facility] Region Referral ID Status Reason Start Date Expiration Date Visits Re quested Visits Authorized [id number] Closed 04/01/2024 04/01/2025 1 1 Encounter Details Date Type Department Care Team (Latest Contact Info) Description 04/01/2024 4:07 PM CDT - 04/01/2024 11:59 PM CDT Hospital Encounter Department of Radiology in [place], [place] [address] [place] [address] Saida Osullivan, MARY, C.N.P., D.N.P. [address], [place] [address] Pain Ankle Right Discharge Disposition: [...] often do you attend chur ch or druze services? Never 09/08/2022 Do you belong to any clubs o r organizations such as orthodox groups, unions, fraternal or athletic groups, or [...] Answer Date Recorded PHQ-2 Score 0 06/29/2023 [employer] - Occupational Stress Questionnaire Answer Date Recorded [...] place to sleep or slept in a jail (including now)? No 09/08/2022 Nutrition Answer Date [...] Office Visit Department of Occupational Medicine in [place], [place] [address] [place] [phone] Monique Linton P.A.-C., PFlaquitaA., M.S. [address] [phone] documented as of this encounter Procedures Procedure [...] Right documented in this encounter Care Teams Cephalometric Analyst Relationship Specialty Start Date End Date Elsewhere, Pcp PCP - General Internal Medicine 02/09/22 documented as of this encounter
[2024-06-17 09:37] VITALS: BMI 52.5
[2024-06-17 09:47] VITALS: BP 123/59; PULSE 72; RESP 16; TEMP 36.7; O2SAT 97
[2024-06-17 09:57] LABS: Ur HCG Qualitative* Negative (Negative)
[2024-06-17] MEDS: SODIUM CHLORIDE 0.9 % (FLUSH) 10 ML SYRINGE IVF (10:01)
--- NOTE | 2024-06-17 10:36 | W.PM.H&PU ---
History & Physical Update History & Physical Update H&P Reviewed and patient assessed: No changes noted
--- NOTE | 2024-06-17 10:49 | P.GYNPRC_ITS ---
Procedure Note Date of procedure: 06/17/24 Will [facility] bill your pro fee for this procedure?: Yes Pre-op diagnosis: Abnormal uterine bleeding, anovulation Post-op diagnosis: Abnormal uterine bleeding, anovulation Procedure: Hysteroscopy, dilation and curettage, placement of Mirena IUD Anesthesia: MAC Complications: None Surgeon: Odette Manning MD Estimated blood loss (mL): 5 IV fluids (mL): 600 Pathology: specimen obtained, sent to pathology Condition: stable Disposition: same day Findings: Findings: External genitalia: normal. Speculum exam: Cervix grossly normal, no abnormal discharge. Intrauterine cavity: Bilateral cornual openings seen, endometrium thick and fluffy in some areas, polypoid? Uterine sound:8.5cm. Procedure Description: Patient was taken to the OR were MAC anesthesia was administered without difficulty. She was placed in the dorsal lithotomy position with Cade type stirrups. Patient was then prepared and draped in the normal sterile fashion. An exam under anesthesia as described above. Bladder emptied with in and out catheter. A bivalved speculum was inserted in the posterior aspect of the vagina. 0.5% Marcaine was injected at 2 and 11 o'clock a total of about 5mL utilized. A single-tooth tenaculum was used to grasp the anterior lip of the cervix. The cervical os was sequentially dilated to accommodate the 5 mm TrueClear hysteroscope using Hegar dilators. A 5 mm 30 degree TrueClear hysteroscope was introduced under direct visualization, and the uterus was distended with normal saline. Findings as above. Soft tissue incisor blade from TrueClear hysteroscope system was introduced under direct visualization and endometrial curettings performed. Hysteroscope removed under direct visualization. The uterus was carefully sounded to 8.5 cm. Mirena IUD was placed without difficulty, strings were cut and left about 3 -4 cm long. Tenaculum was removed from the cervix and good hemostasis was noted at puncture sites. Patient tolerated the procedure well. Instrument and sponge counts were correct x2. The patient was awakened from MAC anesthesia and taken to the recovery room in a stable condition. The patient will go home after recovering from anesthesia and meeting all the criteria for discharge. She was given instruction regarding follow-up visit in 2 weeks at [facility] and instructions for pain medication. Fluid deficit: 325mL
[2024-06-17] MEDS: BUPIVACAINE 0.5% 30 ML INJECTION (11:01)
[2024-06-17 11:22] VITALS: BP 122/75; PULSE 72; RESP 16; TEMP 36.1; O2SAT 97
--- NOTE | 2024-06-17 11:25 | W.ANESCHARGE ---
Anesthesia Charges Start Date/Time Anesthesia Start Date: 06/17/24 Anesthesia Start Time: 10:38 Stop Date/Time Anesthesia Stop Date: 06/17/24 Anesthesia Stop Time: 11:25
[2024-06-17 11:30] VITALS: BP 109/75; PULSE 70; RESP 16; O2SAT 97
[2024-06-17 11:45] VITALS: BP 110/74; PULSE 75; RESP 16; O2SAT 99
[2024-06-17 12:00] VITALS: BP 111/77; PULSE 72; RESP 16; O2SAT 99
== END 2024-06-17 12:34 | disposition home or self-care (01) ==
PROVIDERS: PCP Family Medicine; Visit Provider Obstetrics & Gynecology
PROC: 0UDB8ZZ Extraction of Endometrium, Via Natural or Artificial Opening Endoscopic (ICD-10-PCS; CPT 58558; principal; 2024-06-17 10:45)
DX: N93.8 Other specified abnormal uterine and vaginal bleeding (principal); N97.0 Female infertility associated with anovulation
CPT/HCPCS: 58558; 58300; 00952; 81025; 88305; C1782; J0665; J1100; J1885; J2250; J2405; J2704; J3010; J3490; J7120; J7298

== ENCOUNTER 2024-07-03 11:09 | Outpatient (CLI) | payer BC, SELFPAY ==
--- NOTE | 2024-07-03 11:15 | CRLHL7_ITS ---
For Patients: As a result of the Century Cures Act, medical imaging exams and procedure reports are released immediately into your electronic medical record. You may view this report before your referring provider. If you have questions, please contact your health care provider. INDICATION: Check IUD placement. COMPARISON: Transabdominal and transvaginal ultrasound examination from 05/06/2024. FINDINGS: Transvaginal ultrasound examination of the female pelvis was performed. The uterus is anteverted with no evidence of mass. It measures 8.4 x 3.6 x 4.6 cm. The endometrial lining is normal in thickness at 7 mm. The previously seen prominent thickening of the endometrial lining is no longer present. An intrauterine device is seen in the uterine cavity. It is located in the mid uterus, not located in the superior uterine cavity. Incidental note is made of a few nabothian cysts in the cervix. The right ovary is normal in size and appearance. It measures 3.2 x 1.5 x 2.0 centimeters. The left ovary is again seen to have a simple cyst which measures 4.0 x 2.5 x 3.4 centimeters, previously 3.3 x 2.8 x 3.0 centimeters. The ovary is mildly enlarged by the cyst, measuring 5.1 x 3.3 x 3.9 centimeters. There is normal color and pulse doppler flow in both ovaries. There is no sign of free fluid in the pelvis. IMPRESSION: 1. Intrauterine device located in the midportion of the uterine cavity, not in the superior uterine cavity. 2. Resolution of previously seen prominent thickening of the endometrial lining, now normal in thickness at 7 millimeters. 3. Stable simple cyst in the right ovary measuring up to 4.0 centimeters in diameter, requiring no further follow-up. Dictated by Jaquan Santiago MD @ 07/03/2024 11:12:09 PM (Electronically Signed)
== END 2024-07-03 11:10 | disposition home or self-care (01) ==
LOC: US 11:09
PROVIDERS: PCP Family Medicine; Visit Provider Obstetrics & Gynecology
DX: Z30.431 Encounter for routine checking of intrauterine contraceptive device (principal); N83.201 Unspecified ovarian cyst, right side
CPT/HCPCS: 76830; 87086

== ENCOUNTER 2025-09-21 08:15 | Outpatient (CLI) | payer BC, SELFPAY | END 2025-09-21 08:16 | disposition home or self-care (01) | LOC: NFLDREF 09-24 13:21 | PROVIDERS: PCP Family Medicine; Referring Provider Family Medicine; Visit Provider Family Medicine | DX: E78.5 Hyperlipidemia, unspecified (principal); E03.9 Hypothyroidism, unspecified | CPT/HCPCS: 80053; 80061; 84443 ==